=== PATIENT | male | born 1945 | race Caucasian/White ===

== ENCOUNTER 2017-06-16 18:23 | Inpatient (IN) ==
[2017-06-16] MEDS ORDERED: 0.9 % Sodium Chloride 1,000 ML IVC ONE ×2 (18:26→19:59)
--- NOTE | 2017-06-16 18:30 | Emergency Department Note ---
Disposition Clinical Impression: GI bleed, Severe anemia, History of gastric cancer Disposition: Admitted As Inpatient Condition: Fair General Adult HPI - General Chief complaint: ED Recheck/Abnormal Lab/Rx Stated complaint: anemic Time Seen by Provider: 06/16/17 18:25 Source: patient Limitations: no limitations - History of Present Illness Pain Scale: 0 - Related Data Home Medications Medication Instructions Recorded Confirmed Clopidogrel Bisulfate [Plavix] 75 mg PO DAILY 08/28/16 06/16/17 Insulin ASPART [Novolog Flexpen] 8 unit SQ TIDWM 08/28/16 06/16/17 Insulin Glargine,Hum.rec.anlog 20 unit SQ QPM 08/28/16 06/16/17 [Lantus Solostar] Lisinopril [Zestril] 20 mg PO DAILY 08/28/16 06/16/17 Simvastatin [Zocor] 40 mg PO HS 08/28/16 06/16/17 glipiZIDE [Glipizide] 10 mg PO BID 08/28/16 06/16/17 metFORMIN [Glucophage] 850 mg PO TIDWM 08/28/16 06/16/17 Albuterol Sulfate [Albuterol 2 puff IH Q4H PRN 06/16/17 06/16/17 Inhaler] Ranitidine HCl [Zantac] 150 mg PO BID 06/16/17 06/16/17 Tiotropium [place] [Spiriva 2 puff IH DAILY 06/16/17 06/16/17 Respimat] hydroCHLOROthiazide 12.5 mg PO DAILY 06/16/17 06/16/17 [Hydrochlorothiazide] Previous Rx's Medication Instructions Recorded Magic Mouthwash [Magic Mouthwash 10 ml PO QID PRN #240 ml 12/04/16 BLM] Ondansetron HCl [Zofran] 4 mg PO Q4HR #30 tablet 02/11/17 Prochlorperazine Maleate 10 mg PO Q6H PRN #30 tablet 02/11/17 [Compazine] Docusate Sodium [Colace] 100 mg PO BID #60 capsule 02/18/17 Citalopram Hydrobromide [Celexa] 20 mg PO DAILY #30 tab 04/02/17 Omeprazole [PriLOSEC] 20 mg PO BIDAC #30 cap 06/19/17 Allergies Allergy/AdvReac Type Severity Reaction Status Date / Time No Known Drug Allergies Allergy See Verified 05/28/17 15:56 Comments Past Medical History - Past Medical History Medical history: Reports: aortic aneurysm, cancer, COPD, CVA, diabetes, hyperlipidemia, hypertension, other Surgical history: Reports: other Psychiatric history: Reports: no psych history - Social History Smoking Status: Current every day smoker Smokeless Tobacco Status: No Alcohol use: Reports: none Drug use: Reports: none Physical Exam - General Limitations: no limitations General appearance: alert, appears intoxicated Course Vital Signs Temperature 97 F L 06/16/17 18:25 Pulse Rate 81 06/16/17 18:25 Respiratory Rate 18 06/16/17 18:25 Blood Pressure 130/67 06/16/17 18:25 O2 Sat by Pulse Oximetry 100 06/16/17 18:25 Temperature 97.8 F 06/17/17 06:24 Pulse Rate 71 06/17/17 11:30 Respiratory Rate 18 06/17/17 11:30 Blood Pressure 153/76 06/17/17 11:30 O2 Sat by Pulse Oximetry 97 06/17/17 11:30 Oxygen Delivery Oxygen Delivery Room Air Medical Decision Making - Lab Data Result diagrams: 06/17/17 10:44 Lab Results 06/16/17 06/16/17 06/17/17 Range/Units 19:11 20:10 01:12 POC Glucose 114 H (58-89) Stool Occult Blood Positive A (Negative) Blood Type O POSITIVE Antibody Screen NEGATIVE Crossmatch See Detail Critical Care Time Critical Care Time: Yes Total Critical Care Time: 30 Attestation: The high probability of a clinically significant, sudden or life threatening deterioration of the [] system(s) required my full and direct attention, intervention and personal management. The aggregate critical care time was [] minutes. This time is in addition to time spent performing reported procedures but includes the following: [] Data Review and interpretation [] Patient assessment and monitoring of vital signs [] Documentation [] Medication orders and management Attestation Statement - Attestation Attestation: I examined this patient and my medical decision-making was reviewed with the Resident Physician. I agree with the documented findings, disposition and treatment plan as described except to the extent set forth below. [id number] time provided Patient presents as a transfer from the [place] due to anemia. He appears in no acute distress. It was reported that he was previously confused. He has a history of recurrent transfusions. I [facility] hemoglobin [facility] 6.8
--- NOTE | 2017-06-16 18:32 | Emergency Department Note ---
Disposition Clinical Impression: Severe anemia, History of gastric cancer GI bleed Qualifiers: GI bleed type/associated pathology: melena Qualified Code(s): K92.1 - Melena Disposition: Admitted As Inpatient Condition: Fair Time of Disposition: 22:00 General Adult HPI - General Chief complaint: ED Recheck/Abnormal Lab/Rx Stated complaint: anemic Time Seen by Provider: 06/16/17 18:25 Source: patient Limitations: no limitations Nursing Notes Reviewed: Yes Vital Signs Reviewed: Yes - History of Present Illness HPI Narrative: Patient is a 72-year-old male presents from the [place] via EMS secondary to confusion and severe anemia with a hemoglobin of 6.8. Patient has a history of transfusions would last transfusion 6 months ago with a history of gastric adenocarcinoma. Patient has a rare blood type was not able to receive transfusion at the [place] today. Patient has no abnormal vital signs at this time Pain Scale: 0 - Related Data Home Medications Medication Instructions Recorded Confirmed Clopidogrel Bisulfate [Plavix] 75 mg PO DAILY 08/28/16 06/16/17 Insulin ASPART [Novolog Flexpen] 8 unit SQ TIDWM 08/28/16 06/16/17 Insulin Glargine,Hum.rec.anlog 20 unit SQ QPM 08/28/16 06/16/17 [Lantus Solostar] Lisinopril [Zestril] 20 mg PO DAILY 08/28/16 06/16/17 Simvastatin [Zocor] 40 mg PO HS 08/28/16 06/16/17 glipiZIDE [Glipizide] 10 mg PO BID 08/28/16 06/16/17 metFORMIN [Glucophage] 850 mg PO TIDWM 08/28/16 06/16/17 Albuterol Sulfate [Albuterol 2 puff IH Q4H PRN 06/16/17 06/16/17 Inhaler] Ranitidine HCl [Zantac] 150 mg PO BID 06/16/17 06/16/17 Tiotropium [place] [Spiriva 2 puff IH DAILY 06/16/17 06/16/17 Respimat] hydroCHLOROthiazide 12.5 mg PO DAILY 06/16/17 06/16/17 [Hydrochlorothiazide] Previous Rx's Medication Instructions Recorded Magic Mouthwash [Magic Mouthwash 10 ml PO QID PRN #240 ml 12/04/16 BLM] Ondansetron HCl [Zofran] 4 mg PO Q4HR #30 tablet 02/11/17 Prochlorperazine Maleate 10 mg PO Q6H PRN #30 tablet 02/11/17 [Compazine] Docusate Sodium [Colace] 100 mg PO BID #60 capsule 02/18/17 Citalopram Hydrobromide [Celexa] 20 mg PO DAILY #30 tab 04/02/17 Omeprazole [PriLOSEC] 20 mg PO BIDAC #30 cap 05/08/17 Allergies Allergy/AdvReac Type Severity Reaction Status Date / Time No Known Drug Allergies Allergy See Verified 05/28/17 15:56 Comments Review of Systems: As Per HPI Constitutional: Denies: fever Eyes: Denies: vision change ENT ED: Denies: congestion Cardiovascular: Denies: chest pain Respiratory: Denies: cough Gastrointestinal: Denies: abdominal pain Genitourinary: Denies: urgency Musculoskeletal: Denies: back pain Integumentary: Denies: rash Neurological: Denies: headache Endocrine: Denies: fatigue Past Medical History - Past Medical History Medical history: Reports: aortic aneurysm, cancer, COPD, CVA, diabetes, hyperlipidemia, hypertension, other Surgical history: Reports: other Psychiatric history: Reports: no psych history - Social History Smoking Status: Current every day smoker Smokeless Tobacco Status: No Alcohol use: Reports: none Drug use: Reports: none Physical Exam Vital Signs Temperature 97 F L 06/16/17 18:25 Pulse Rate 81 06/16/17 18:25 Respiratory Rate 18 06/16/17 18:25 Blood Pressure 130/67 06/16/17 18:25 O2 Sat by Pulse Oximetry 100 06/16/17 18:25 Temperature 97 F L 06/16/17 18:25 Pulse Rate 78 06/16/17 19:55 Respiratory Rate 18 06/16/17 19:55 Blood Pressure 129/71 06/16/17 19:55 O2 Sat by Pulse Oximetry 93 06/16/17 19:55 Oxygen Delivery Oxygen Delivery Room Air 72-year-old male who is alert and oriented 3 and in no acute distress. Patient has normal vital signs. Patient has melanotic stool on rectal exam. - General Limitations: no limitations General appearance: alert, appears intoxicated - Head Head exam: atraumatic, normocephalic, normal inspection - Eye Eye exam: Present: normal appearance, PERRL, EOMI - ENT ENT exam: normal exam, normal oropharynx, mucous membranes moist - Neck Neck exam: Present: normal inspection, full ROM, trachea midline - Chest Chest inspection: Present: normal inspection, symmetric chest wall rise - Respiratory Respiratory exam: Present: normal lung sounds bilaterally, wheezes - Cardiovascular Cardiovascular exam: Present: regular rate, normal rhythm, normal heart sounds - Abdominal Exam Abdominal exam: Present: soft, Non-Tender. Absent: tenderness, distention, guarding, rebound, rigidity - Rectal Exam Rectal exam: Present: normal rectal tone, black stool, prostate enlargement - Female Precision Grinder External present during exam: Yes - Extremities Exam Extremities exam: Present: normal inspection, full ROM, normal capillary refill. Absent: tenderness, pedal edema - Back Exam Back exam: Present: normal inspection, full ROM. Absent: tenderness, CVA tenderness (R), CVA tenderness (L), vertebral tenderness - Neurological Exam Neurological exam: Present: alert, oriented X3 - Skin Skin exam: Present: warm, dry, intact, normal color. Absent: rash, pallor Course Vital Signs Temperature 97 F L 06/16/17 18:25 Pulse Rate 81 06/16/17 18:25 Respiratory Rate 18 06/16/17 18:25 Blood Pressure 130/67 06/16/17 18:25 O2 Sat by Pulse Oximetry 100 06/16/17 18:25 Temperature 97.4 F L 06/16/17 23:16 Pulse Rate 72 06/16/17 23:16 Respiratory Rate 17 06/16/17 23:16 Blood Pressure 125/57 06/16/17 23:16 O2 Sat by Pulse Oximetry 95 06/16/17 23:16 Oxygen Delivery Oxygen Delivery Room Air Medical Decision Making - [facility] Narrative Medical decision making narrative: Severe anemia hemoglobin 6.8 symptomatic with confusion black stools on rectal exam history of abdominal adenocarcinoma. Current plan fluid resuscitation type and crossmatch for blood transfusion admission. Patient's history undergoing treatment for gastric adenocarcinoma with Dr. Arguelles. Patient is scheduled for transfusion 2 units, patient is receiving 2 L IV normal saline, patient is doing well and has normal vital signs. Fecal occult stool test was positive. Patient accepts this is a further admission. Patient accepted for admission by hospitalist Dr. Street. - Medical Records Medical records reviewed: Yes I reviewed the patient's medical records. Records were ordered from the [place] patient's lab workup was ready done which shows hemoglobin 6.8 - Lab Data Lab results reviewed: Yes I reviewed the patient's lab results. Lab Results 06/16/17 06/16/17 Range/Units 19:11 20:10 Stool Occult Blood Positive A (Negative) Blood Type O POSITIVE Antibody Screen NEGATIVE Crossmatch See Detail - Radiology Data Radiology results reviewed: Yes I reviewed the patient's radiology results.
[2017-06-16] MEDS ORDERED: Pantoprazole 40 MG VIAL IVP ONE (20:37)
[2017-06-17] MEDS ORDERED: 0.9 % Sodium Chloride 500 ML ONE (00:25)
[2017-06-17] MEDS ORDERED: Albuterol 2.5 MG/3 ML NEBULIZER IH PRN (04:10)
[2017-06-17] MEDS ORDERED: Naloxone 0.4 MG/ML INJ IVP PRN (04:11)
[2017-06-17] MEDS ORDERED: Ondansetron 4 MG/2 ML VIAL IVP PRN (04:11)
[2017-06-17] MEDS ORDERED: Acetaminophen 325 MG TABLET PO PRN (04:11)
[2017-06-17] MEDS ORDERED: Dextrose Gel 15 GM PO PRN ×2 (04:14)
[2017-06-17] MEDS ORDERED: *HR* Dextrose 50 % in Water (Syg) 50 ML SYRINGE IVP PRN (04:14)
[2017-06-17] MEDS ORDERED: D5% in Water 1,000 ML IVC PRN (04:14)
--- NOTE | 2017-06-17 04:19 | Internal Med History&Physical ---
Date of Encounter: 06/17/17 Time of Encounter: 04:17 Assessment and Plan (1) GI bleed Current visit: Yes Status: Acute Patient denies any melena or hematochezia however per history he has had melena. He has history of adenocarcinoma of the stomach and he says he has been receiving transfusion for last 10 years. His hemoglobin is 6.8. He has been given 2 units of blood. H&H ordered IV Protonix was started. Requesting old records to see how long ago he had EGD and colonoscopy as patient could not tell me. Qualifiers: GI bleed type/associated pathology: melena Qualified Code(s): K92.1 - Melena (2) History of gastric cancer Current visit: Yes Status: Acute History of gastric cancer. Patient not sure how it was treated. Need to see the record. (3) COPD (chronic obstructive pulmonary disease) Current visit: Yes Status: Acute Albuterol nebs when necessary Qualifiers: COPD type: emphysema Emphysema type: unspecified Qualified Code(s): J43.9 - Emphysema, unspecified (4) Diabetes 1.5, managed as type 2 Current visit: Yes Status: Acute Recheck yearly with sliding scale coverage Internal Medicine - H&P: HPI Chief complaint: Confusion and anemia Admitted From: Home Plans for Post Hospital Care: Home History of present illness: Mr. Abbott is a 72 year old male past medical history significant for adenocarcinoma of the stomach sent from [facility] for anemia and confusion. No further details available. Patient is awake and alert and answered my questions and does not appear confused. He says he has been having this problem for the last 10 years and every 6 months or so he needs transfusion. He did have EGD and colonoscopy in the past. As patient arrived pretty late in the evening he does not want to talk much at this time. He denies any abdominal pain nausea vomiting diarrhea dysuria urgency frequency hematuria hematochezia or hematemesis melena or any other symptoms otherwise. Past Med Surg Social Fam HX - Past Medical History Medical history: aortic aneurysm, cancer, COPD, CVA, diabetes, hyperlipidemia, hypertension, other Psychiatric history: no psych history - Past Surgical History Surgical History: other - Social History Smoking Status: Current every day smoker Smokeless Tobacco Status: No Alcohol use: none Drug use: none - Family History Mother Cause of : [place] or CVA Father Cause of : [place] or CVA Internal Medicine - H&P: Meds Clopidogrel Bisulfate [Plavix] 75 mg PO DAILY 08/28/16 [History] Insulin ASPART [Novolog Flexpen] 8 unit SQ TIDWM 08/28/16 [History] Insulin Glargine,Hum.rec.anlog [Lantus Solostar] 20 unit SQ QPM 08/28/16 [ History] Lisinopril [Zestril] 20 mg PO DAILY 08/28/16 [History] Simvastatin [Zocor] 40 mg PO HS 08/28/16 [History] glipiZIDE [Glipizide] 10 mg PO BID 08/28/16 [History] metFORMIN [Glucophage] 850 mg PO TIDWM 08/28/16 [History] Magic Mouthwash [Magic Mouthwash BLM] 10 ml PO QID PRN #240 ml 12/04/16 [Rx] Ondansetron HCl [Zofran] 4 mg PO Q4HR #30 tablet 02/11/17 [Rx] Prochlorperazine Maleate [Compazine] 10 mg PO Q6H PRN #30 tablet 02/11/17 [Rx] Docusate Sodium [Colace] 100 mg PO BID #60 capsule 02/18/17 [Rx] Citalopram Hydrobromide [Celexa] 20 mg PO DAILY #30 tab 04/02/17 [Rx] Omeprazole [PriLOSEC] 20 mg PO BIDAC #30 cap 05/08/17 [Rx] Albuterol Sulfate [Albuterol Inhaler] 2 puff IH Q4H PRN 06/16/17 [History] Ranitidine HCl [Zantac] 150 mg PO BID 06/16/17 [History] Tiotropium [place] [Spiriva Respimat] 2 puff IH DAILY 06/16/17 [History] hydroCHLOROthiazide [Hydrochlorothiazide] 12.5 mg PO DAILY 06/16/17 [History] 3 Allergy/AdvReac Type Severity Reaction Status Date / Time No Known Drug Allergies Allergy See Verified 05/28/17 15:56 Comments All Systems PM: A 10-system review of systems was performed and is negative for pertinent findings except as documented above in the HPI. - Constitutional Constitutional: no chills, no fever(s), no night sweats - EENT Eyes: no change in vision, no discharge, no pain, no photophobia Ears: no ear discharge, no ear pain, no tinnitus Nose, mouth and throat: no dysphagia, no nasal discharge, no neck pain, no sore throat - Cardiovascular Cardiovascular ROS IM: no chest pain, no diaphoresis, no dyspnea, no lightheadedness, no palpitations, no syncope - Respiratory Respiratory: no cough, no dyspnea, no wheezing, no excessive phlegm production - Gastrointestinal Gastrointestinal: no abdominal pain, no diarrhea, no hematemesis, no hematochezia, no melena, no nausea, no vomiting - Musculoskeletal Musculoskeletal ROS IM: no numbness, no tingling - Integumentary Integumentary IM: no rash, no unusual bruising - Neurological Neurological ROS: no confusion, no convulsions, no focal weakness, no numbness, no tingling, no tremor(s) - Hematologic/Lymphatic Hematologic/Lymphatic: no easy bruising - Constitutional Vitals: Temp Pulse Resp BP Pulse Ox 97.5 F L 68 15 130/63 97 06/17/17 04:00 06/17/17 04:00 06/17/17 04:00 06/17/17 04:00 06/17/17 04:00 - Head Head exam: Present: atraumatic, normocephalic - Eye Eye exam: Present: PERRL, conjuntiva pink, sclera anicteric Pupils: Present: PERRL - Neck Neck exam general surgery: Present: supple, trachea midline. Absent: lymphadenopathy - Respiratory Respiratory exam: Present: CTAB. Absent: accessory muscle use, rales, rhonchi, wheezes - Cardiovascular Cardiovascular exam: Present: RRR, +S1, +S2. Absent: diastolic murmur, gallop, rubs, systolic murmur - GI/Abdominal GI/Abdominal exam: Present: normal bowel sounds, soft, no peritoneal signs. Absent: distended, tenderness - Extremities Exam Extremities exam: Present: warm, radial pulses palpable and symmetrical. Absent : calf tenderness, cyanotic, pedal edema - Neurological Exam Neurological exam: Present: CN II-XII intact, oriented X3, no focal deficits. Absent: pronater drift, facial droop, speech deficit - Skin Skin exam: Present: dry, intact
[2017-06-17] MEDS: Insulin LISPRO 300 UNITS/3 ML VIAL SQ SCH ×2 (06:54→12:47)
[2017-06-17] MEDS ORDERED: Pantoprazole 40 MG VIAL IVP SCH (07:30)
[2017-06-17 08:47] LABS: Hematocrit 23.9 % (37.5-50.1); Hemoglobin 7.1 g/dL (12.9-16.9)
[2017-06-17] MEDS ORDERED: Ipratropium/Albuterol Neb 3 ML IH SCH (10:00)
[2017-06-17 10:53] LABS: Hematocrit 27.1 % (37.5-50.1); Hemoglobin 8.1 g/dL (12.9-16.9)
[2017-06-17 11:31] VITALS: BP 153/76
--- NOTE | 2017-06-17 14:14 | Discharge Summary ---
Date of Encounter: 06/17/17 Time of Encounter: 09:10 - Discharge Diagnosis (1) GI bleed Priority: Primary Status: Acute Comments: Patient is a 72-year-old male with past medical history significant for anemia, adenocarcinoma of the stomach. He was sent from the [place] for anemia and confusion , however when he arrived admitting physician did not feel that he was confused. He reports having melena and anemia requiring transfusion every 6 months or so for the last 10 years. Patient had EGD and colonoscopy in the past at the [facility], and we were trying to obtain his old records. On exam this morning, patient appears to be alert, oriented. He also appears very agitated and does not want to speak or answer questions. When questioned about melena or dark tarry stools one time he says that he had had them, the next time he is asked he says he does not know. His abdomen is soft and nontender. There are bowel sounds present. He denies bowel movement today. He is pink, skin is warm and dry. He does not appear to be in respiratory distress. He has been ambulating continuously in the hallways of the department and does not appear to be having difficulty. Patient had serial hemoglobins this morning. The first one at 8:20 AM was 7.1, at 10:44 AM it was 8.1. Patient was unwilling to stay for continued evaluation or to be evaluated by GI or surgery for a scope. He was unwilling to stay for further blood transfusions. Patient reports that everything was taking way too long that he wanted to go home. seed cleaning manager and I spoke with the patient and attempted to resolve his concerns , he was unwilling to continue treatment and requested to be sent home. Patient signed out AMA. Qualifiers: GI bleed type/associated pathology: melena Qualified Code(s): K92.1 - Melena (2) Severe anemia Priority: Secondary Status: Acute Comments: Patient with chronic anemia. He presented with melena. When patient last, last hemoglobin was 8.1 at 10:44 AM. Patient did not have any obvious signs of bleeding, he was able to ambulate around the department well without any signs of distress, fatigue, or shortness of breath. See above. (3) COPD (chronic obstructive pulmonary disease) Priority: Secondary Status: Acute Comments: Patient did not appear to be in acute exacerbation. His lungs were diminished with faint wheezing in the bases. He denied any cough. He was not requiring supplemental oxygen, nor does he wear oxygen at home per his account. He was able to ambulate without difficulty. Patient signed out AGAINST MEDICAL ADVICE. Qualifiers: COPD type: emphysema Emphysema type: unspecified Qualified Code(s): J43.9 - Emphysema, unspecified (4) Diabetes 1.5, managed as type 2 Priority: Secondary Status: Chronic Comments: Chronic. Continue home regimen. (5) HTN (hypertension) Priority: Secondary Status: Chronic Comments: Blood pressure was well controlled while admitted. Continue home medications. Qualifiers: Hypertension type: unspecified Qualified Code(s): I10 - Essential (primary ) hypertension (6) DVT prophylaxis Priority: Secondary Status: Acute Comments: Patient was ambulatory. No pharmacologic intervention recommended due to anemia and melena. - Discharge Medications Home Medications: Clopidogrel Bisulfate [Plavix] 75 mg PO DAILY 08/28/16 [History] Insulin ASPART [Novolog Flexpen] 8 unit SQ TIDWM 08/28/16 [History] Insulin Glargine,Hum.rec.anlog [Lantus Solostar] 20 unit SQ QPM 08/28/16 [ History] Lisinopril [Zestril] 20 mg PO DAILY 08/28/16 [History] Simvastatin [Zocor] 40 mg PO HS 08/28/16 [History] glipiZIDE [Glipizide] 10 mg PO BID 08/28/16 [History] metFORMIN [Glucophage] 850 mg PO TIDWM 08/28/16 [History] Magic Mouthwash [Magic Mouthwash BLM] 10 ml PO QID PRN #240 ml 12/04/16 [Rx] Ondansetron HCl [Zofran] 4 mg PO Q4HR #30 tablet 02/11/17 [Rx] Prochlorperazine Maleate [Compazine] 10 mg PO Q6H PRN #30 tablet 02/11/17 [Rx] Docusate Sodium [Colace] 100 mg PO BID #60 capsule 02/18/17 [Rx] Citalopram Hydrobromide [Celexa] 20 mg PO DAILY #30 tab 04/02/17 [Rx] Omeprazole [PriLOSEC] 20 mg PO BIDAC #30 cap 05/08/17 [Rx] Albuterol Sulfate [Albuterol Inhaler] 2 puff IH Q4H PRN 06/16/17 [History] Ranitidine HCl [Zantac] 150 mg PO BID 06/16/17 [History] Tiotropium [place] [Spiriva Respimat] 2 puff IH DAILY 06/16/17 [History] hydroCHLOROthiazide [Hydrochlorothiazide] 12.5 mg PO DAILY 06/16/17 [History] Allergies/Adverse Reactions: 3 Allergy/AdvReac Type Severity Reaction Status Date / Time No Known Drug Allergies Allergy See Verified 05/28/17 15:56 Comments Date of admission: 06/17/17 04:11 [facility] care [facility] Discharging clinician: Cristy Dempsey Anticipated date of discharge: 06/17/17 - Patient Status Disposition: Left Against Medical Advice Condition: Fair - Discharge Instructions Instructions: Gastrointestinal Bleeding (DC), Anemia (GEN) Interval History: Please see assessment and plan for hospital course. Hospital course: Mr. Abbott is a 72 year old male - Time Spent with Patient Total time spent providing and/or coordinating discharge services: - Constitutional Vitals: Temp Pulse Resp BP Pulse Ox 97.8 F 71 18 153/76 97 06/17/17 06:24 06/17/17 11:30 06/17/17 11:30 06/17/17 11:30 06/17/17 11:30 General appearance: Present: cooperative, no acute distress, answers questions appropriately. Absent: pleasant - Head Head exam: Present: atraumatic, normal inspection, normocephalic - Eye Eye exam: Present: normal appearance, conjuntiva pink, sclera anicteric - Neck Neck exam general surgery: Present: supple, trachea midline. Absent: lymphadenopathy - Respiratory Respiratory exam: Present: CTAB. Absent: accessory muscle use, chest wall tenderness, decreased breath sounds, rales, respiratory distress, rhonchi, wheezes - Cardiovascular Cardiovascular exam: Present: RRR, +S1, +S2. Absent: diastolic murmur, gallop, rubs, systolic murmur - GI/Abdominal GI/Abdominal exam: Present: normal bowel sounds, soft, no peritoneal signs. Absent: distended, tenderness - Extremities Exam Extremities exam: Present: normal capillary refill, normal inspection, warm, radial pulses palpable and symmetrical. Absent: calf tenderness, cyanotic, pedal edema - Neurological Exam Neurological exam: Present: alert, oriented X3, no focal deficits. Absent: facial droop, speech deficit - Skin Skin exam: Present: dry, intact, normal color, warm. Absent: rash
== END 2017-06-17 13:02 | disposition left against medical advice (07) | DRG 812 ==
LOC: EMEROO 18:23 → 3BNU 18:23
PROVIDERS: ADMIT Family Medicine; ATTEND Registered Nurse

== ENCOUNTER 2017-12-19 11:08 | Observation (INO) ==
--- NOTE | 2017-12-19 12:12 | Emergency Department Note ---
Disposition Clinical Impression: Severe anemia GI bleed Qualifiers: GI bleed type/associated pathology: unspecified gastrointestinal hemorrhage type Qualified Code(s): K92.2 - Gastrointestinal hemorrhage, unspecified Disposition: Admitted As Inpatient Condition: Fair General Adult HPI - General Chief complaint: ED General Medical Stated complaint: Needs blood Time Seen by Provider: 12/19/17 11:17 Source: patient Mode of arrival: ambulatory Limitations: no limitations Nursing Notes Reviewed: Yes Vital Signs Reviewed: Yes - History of Present Illness HPI Narrative: Patient is a 72-year-old male with a past medical history of gastric adenocarcinoma presenting at the request of his oncologist for blood transfusion. The patient states he has a history of receiving transfusions over the past 10 years due to blood loss or suspect is from his gastric adenocarcinoma. The patient currently undergoes radiation therapy for his cancer. States that he was seen at his oncologist, Dr. Smith and yesterday and was found to have a hemoglobin that was low and it dropped over the week. The patient states that he did have one large black and tarry bowel movement yesterday which is normal for him. His only symptoms are that he feels weak he denies any fevers, chills, congestion, cough, chest pain, shortness of breath, abdominal pain, vomiting, nausea or any other associated symptoms at this time. Pain Scale: 0 - Related Data Home Medications Medication Instructions Recorded Confirmed Albuterol Sulfate [Albuterol 2 puff IH Q4HR PRN 12/19/17 12/19/17 Inhaler] Ascorbic Acid [Vitamin C] 250 mg PO TID 12/19/17 12/19/17 Cholecalciferol (D-3) [Vitamin D] 2,000 unit PO DAILY 12/19/17 12/19/17 Citalopram [CeleXA] 20 mg PO DAILY 12/19/17 12/19/17 Colestipol HCl [Colestid] 2 gm PO DAILY 12/19/17 12/19/17 Folic Acid 1 mg PO DAILY 12/19/17 12/19/17 Lisinopril [Zestril] 20 mg PO DAILY 12/19/17 12/19/17 Omeprazole [PriLOSEC] 20 mg PO BIDAC 12/19/17 12/19/17 Simvastatin [Zocor] 40 mg PO HS 12/19/17 12/19/17 Tiotropium [place] [Spiriva 2 puff IH DAILY 12/19/17 12/19/17 Respimat] Zolpidem [Ambien] 5 mg PO HS 12/19/17 12/19/17 glipiZIDE [Glipizide] 10 mg PO BID 12/19/17 12/19/17 metFORMIN [Glucophage] 850 mg PO TID 12/19/17 12/19/17 Previous Rx's Medication Instructions Recorded Magic Mouthwash [Magic Mouthwash 10 ml PO QID PRN #240 ml 12/04/16 BLM] Ondansetron HCl [Zofran] 4 mg PO Q4HR #30 tablet 02/11/17 Hydrocortisone 2.5% CREAM [Cortaid] 1 appl TP BID #1 tube 07/08/17 DiphenhydraMINE [Benadryl] 1 tab PO BID PRN #30 capsule 08/12/17 Diphenoxylate/Atropine [Lomotil 1 each PO QID PRN 7 Days #30 tablet 09/14/17 2.5 mg/0.025 mg] Desitin (Zinc Oxide) [Desitin 1 appl TP TID #1 tube 09/15/17 Diaper Rash 40 % Paste] Allergies Allergy/AdvReac Type Severity Reaction Status Date / Time No Known Drug Allergies Allergy See Verified 12/19/17 14:23 Comments All systems ED: reviewed and negative except as stated. Review of Systems: As Per HPI Constitutional: Reports: weakness. Denies: fever, chills ENT ED: Denies: congestion Cardiovascular: Denies: chest pain, palpitations Respiratory: Denies: cough, dyspnea, wheezes Gastrointestinal: Denies: abdominal pain, nausea, vomiting, diarrhea Genitourinary: Denies: urgency, dysuria Musculoskeletal: Denies: back pain, neck pain Integumentary: Denies: rash, abrasion Neurological: Denies: headache, weakness Past Medical History - Past Medical History Attestation: Yes The following information was validated with the patient. Medical history: Reports: aortic aneurysm, cancer, COPD, CVA, diabetes, hyperlipidemia, hypertension, other Surgical history: Reports: other Psychiatric history: Reports: no psych history - Social History Smoking Status: Current every day smoker Smokeless Tobacco Status: No Alcohol use: Reports: none Drug use: Reports: none Physical Exam CONSTITUTIONAL: Well-appearing; well-nourished; A&O X 3, in no apparent distress HEAD: Normocephalic; atraumatic EYES: PERRL, no scleral icterus NOSE: The nose is normal in appearance without rhinorrhea NECK: No JVD or distended neck veins RESP: Normal chest excursion with respiration; breath sounds clear and equal bilaterally; no wheezes, rhonchi, or rales CARD: Regular rhythm, without murmurs, rub or gallop ABD: Non-distended; non-tender, soft, without rigidity, rebound or guarding,no pulsatile mass CHEST: No pain with palpation SKIN: Normal for age and race; warm and dry without diaphoresis RECTAL: Rectal exam shows normal tone. No gross blood present. Black stool seen on digital exploration. No tenderness. EXT: patient does have a skin tear in his left distal wrist on the ulnar aspect from a fall. He denies any bony tenderness. No step-off or deformity full range of motion of the wrist, digits, and elbow. No sensation loss. 5 out of 5 strength. EXTREMITIES: Pulses are 2 plus and equal times 4 extremities, no peripheral edema or calf muscle pain - General Limitations: no limitations General appearance: alert, in no apparent distress Course Course Narrative: I discussed the patient's case with the oncologist on-call and they state that this patient is mainly coming in for blood transfusions because her office is currently too backed up for them to have patient come to them for transfusions at this time. He states that the patient's blood loss from his cancer is a chronic ongoing issue and the patient has had an extensive workup with CT scans and EGDs and seen Gen. surgery is currently undergoing treatment for his chronic anemia. States that it is routine for this patient to receive blood transfusions. Does recommend admission for blood transfusions. No other concerns at this time. Vital Signs Temperature 97.9 F 12/19/17 11:08 Pulse Rate 88 12/19/17 11:08 Respiratory Rate 16 12/19/17 11:08 Blood Pressure 122/76 12/19/17 11:08 O2 Sat by Pulse Oximetry 100 12/19/17 11:08 Temperature 98.8 F 12/19/17 18:44 Pulse Rate 70 12/19/17 18:44 Respiratory Rate 18 12/19/17 18:44 Blood Pressure 110/69 12/19/17 18:44 O2 Sat by Pulse Oximetry 95 12/19/17 16:18 Oxygen Delivery Oxygen Delivery Room Air Medical Decision Making - Medical Records Medical records reviewed: Yes I reviewed the patient's medical records. - Lab Data Result diagrams: 12/19/17 12:04 12/19/17 12:04 Lab Results 12/19/17 12/19/17 12/19/17 Range/Units 12:04 12:04 12:04 WBC 5.4 (4.3-11.1) K/mcL RBC 2.22 L (4.19-5.50) M/mcL Hgb 5.5 L* (12.9-16.9) g/dL Hct 18.9 L (37.5-50.1) % MCV 85.1 (83.0-100.0) fL MCH 24.8 L (28.0-33.3) pg MCHC 29.1 L (31.6-35.5) g/dL RDW 19.6 H (11.5-14.5) % Plt Count 268 (140-400) K/mcL MPV 10.4 (9.4-12.4) fL Immature Gran % 0.6 (0-4) % Seg Neutrophils % 82.0 % Lymphocytes % 9.1 % Monocytes % 7.0 % Eosinophils % 1.1 % Basophils % 0.2 % Neutrophils # 4.4 (1.6-8.9) K/mcL Lymphocytes # 0.5 L (0.6-4.6) K/mcL Monocytes # 0.4 (0.0-1.3) K/mcL Eosinophils # 0.1 (0.0-0.6) K/mcL Basophils # 0.0 (0.0-0.2) K/mcL Sodium 135 L (136-145) mEq/L Potassium 3.8 (3.5-5.1) mEq/L Chloride 103 (98-107) mEq/L Carbon Dioxide 24 (23-29) mEq/L BUN 21 (8-23) mg/dL Creatinine 1.02 (0.70-1.30) mg/dL Est GFR ( Amer) > 60 (> 60) Est GFR (Non-Af Amer) > 60 (> 60) BUN/Creatinine Ratio 21 (6-26) Glucose 171 H (70-105) mg/dL Calculated Osmolality 287 (280-300) Calcium 9.4 (8.6-10.3) mg/dL Troponin I < 0.03 (< 0.04) ng/mL Stool Occult Blood (Negative) Blood Type O POSITIVE Antibody Screen NEGATIVE Crossmatch See Detail 12/19/17 Range/Units 12:04 WBC (4.3-11.1) K/mcL RBC (4.19-5.50) M/mcL Hgb (12.9-16.9) g/dL Hct (37.5-50.1) % MCV (83.0-100.0) fL MCH (28.0-33.3) pg MCHC (31.6-35.5) g/dL RDW (11.5-14.5) % Plt Count (140-400) K/mcL MPV (9.4-12.4) fL Immature Gran % (0-4) % Seg Neutrophils % % Lymphocytes % % Monocytes % % Eosinophils % % Basophils % % Neutrophils # (1.6-8.9) K/mcL Lymphocytes # (0.6-4.6) K/mcL Monocytes # (0.0-1.3) K/mcL Eosinophils # (0.0-0.6) K/mcL Basophils # (0.0-0.2) K/mcL Sodium (136-145) mEq/L Potassium (3.5-5.1) mEq/L Chloride (98-107) mEq/L Carbon Dioxide (23-29) mEq/L BUN (8-23) mg/dL Creatinine (0.70-1.30) mg/dL Est GFR ( Amer) (> 60) Est GFR (Non-Af Amer) (> 60) BUN/Creatinine Ratio (6-26) Glucose (70-105) mg/dL Calculated Osmolality (280-300) Calcium (8.6-10.3) mg/dL Troponin I (< 0.04) ng/mL Stool Occult Blood Positive A (Negative) Blood Type Antibody Screen Crossmatch - EKG Data EKG #1 EKG attestation: Yes I reviewed and interpreted this EKG. EKG results narrative: EKG done at 11:50 shows sinus rhythm at a rate of 97 bpm. Normal axis. MS is 164, QRS is 105, QT is 360 and QTc is 4 and 16 and these are within normal limits. No signs of ST elevation, ST depression or new Q waves present. No signs of ischemia. The patient does have some ST changes that appear to be chronic. No new changes when compared to EKG done on December 192017
[2017-12-19 12:28] LABS: Basophils % 0.2 %; Mean Platelet Volume 10.4 fL (9.4-12.4)
[2017-12-19 12:29] LABS: Eosinophils # 0.1 K/mcL (0.0-0.6); Eosinophils % 1.1 %; Hematocrit 18.9 % (37.5-50.1); Immature Granulocytes % 0.6 % (0-4); Lymphocytes # 0.5 K/mcL (0.6-4.6); Lymphocytes % 9.1 %; Mean Corpuscular HGB Conc 29.1 g/dL (31.6-35.5); Mean Corpuscular Hemoglobin 24.8 pg (28.0-33.3); Mean Corpuscular Volume 85.1 fL (83.0-100.0); Monocytes # 0.4 K/mcL (0.0-1.3); Neutrophils # 4.4 K/mcL (1.6-8.9); Platelet Count 268 K/mcL (140-400); Red Blood Count 2.22 M/mcL (4.19-5.50); Red Cell Distribution Width 19.6 % (11.5-14.5)
[2017-12-19 12:35] LABS: Hemoglobin 5.5 g/dL (12.9-16.9)
[2017-12-19 12:53] LABS: BUN/Creatinine Ratio 21 (6-26); Blood Urea Nitrogen 21 mg/dL (8-23); Calcium 9.4 mg/dL (8.6-10.3); Carbon Dioxide 24 mEq/L (23-29); Chloride 103 mEq/L (98-107); Glucose 171 mg/dL (70-105); Osmolality,Calculated 287 (280-300); Potassium 3.8 mEq/L (3.5-5.1); Sodium 135 mEq/L (136-145); Troponin I < 0.03 ng/mL (< 0.04); eGFR For African Americans > 60 (> 60); eGFR For Non-African Americans > 60 (> 60)
[2017-12-19] MEDS ORDERED: 0.9 % Sodium Chloride 500 ML ONE (13:33)
--- NOTE | 2017-12-19 13:38 | Emergency Department Note ---
Disposition Clinical Impression: Severe anemia GI bleed Qualifiers: GI bleed type/associated pathology: unspecified gastrointestinal hemorrhage type Qualified Code(s): K92.2 - Gastrointestinal hemorrhage, unspecified Disposition: Admitted As Inpatient Condition: Fair General Adult HPI - General Chief complaint: ED General Medical Stated complaint: Needs blood Time Seen by Provider: 12/19/17 11:17 Source: patient Mode of arrival: ambulatory Limitations: no limitations Nursing Notes Reviewed: Yes Vital Signs Reviewed: Yes - History of Present Illness Pain Scale: 0 - Related Data Home Medications Medication Instructions Recorded Confirmed Albuterol Sulfate [Albuterol 2 puff IH Q4HR PRN 12/19/17 12/19/17 Inhaler] Ascorbic Acid [Vitamin C] 250 mg PO TID 12/19/17 12/19/17 Cholecalciferol (D-3) [Vitamin D] 2,000 unit PO DAILY 12/19/17 12/19/17 Citalopram [CeleXA] 20 mg PO DAILY 12/19/17 12/19/17 Colestipol HCl [Colestid] 2 gm PO DAILY 12/19/17 12/19/17 Folic Acid 1 mg PO DAILY 12/19/17 12/19/17 Lisinopril [Zestril] 20 mg PO DAILY 12/19/17 12/19/17 Omeprazole [PriLOSEC] 20 mg PO BIDAC 12/19/17 12/19/17 Simvastatin [Zocor] 40 mg PO HS 12/19/17 12/19/17 Tiotropium [place] [Spiriva 2 puff IH DAILY 12/19/17 12/19/17 Respimat] Zolpidem [Ambien] 5 mg PO HS 12/19/17 12/19/17 glipiZIDE [Glipizide] 10 mg PO BID 12/19/17 12/19/17 metFORMIN [Glucophage] 850 mg PO TID 12/19/17 12/19/17 Previous Rx's Medication Instructions Recorded Magic Mouthwash [Magic Mouthwash 10 ml PO QID PRN #240 ml 12/04/16 BLM] Ondansetron HCl [Zofran] 4 mg PO Q4HR #30 tablet 02/11/17 Hydrocortisone 2.5% CREAM [Cortaid] 1 appl TP BID #1 tube 12/27/17 DiphenhydraMINE [Benadryl] 1 tab PO BID PRN #30 capsule 08/12/17 Diphenoxylate/Atropine [Lomotil 1 each PO QID PRN 7 Days #30 tablet 09/14/17 2.5 mg/0.025 mg] Desitin (Zinc Oxide) [Desitin] 1 appl TP TID #1 tube 09/15/17 Allergies Allergy/AdvReac Type Severity Reaction Status Date / Time No Known Drug Allergies Allergy See Verified 12/19/17 14:23 Comments Constitutional: Reports: weakness. Denies: fever, chills ENT ED: Denies: congestion Cardiovascular: Denies: chest pain, palpitations Respiratory: Denies: cough, dyspnea, wheezes Gastrointestinal: Denies: abdominal pain, nausea, vomiting, diarrhea Genitourinary: Denies: urgency, dysuria Musculoskeletal: Denies: back pain, neck pain Integumentary: Denies: rash, abrasion Neurological: Denies: headache, weakness Past Medical History - Past Medical History Medical history: Reports: aortic aneurysm, cancer, COPD, CVA, diabetes, hyperlipidemia, hypertension, other Surgical history: Reports: other Psychiatric history: Reports: no psych history - Social History Smoking Status: Current every day smoker Smokeless Tobacco Status: No Alcohol use: Reports: none Drug use: Reports: none Physical Exam - General Limitations: no limitations General appearance: alert, in no apparent distress Course Vital Signs Temperature 97.9 F 12/19/17 11:08 Pulse Rate 88 12/19/17 11:08 Respiratory Rate 16 12/19/17 11:08 Blood Pressure 122/76 12/19/17 11:08 O2 Sat by Pulse Oximetry 100 12/19/17 11:08 Temperature 97.8 F 12/20/17 07:02 Pulse Rate 58 12/20/17 07:02 Respiratory Rate 17 12/20/17 07:02 Blood Pressure 144/75 12/20/17 07:02 O2 Sat by Pulse Oximetry 98 12/20/17 07:02 Oxygen Delivery Oxygen Delivery Room Air Medical Decision Making - Lab Data Result diagrams: 12/20/17 04:00 12/19/17 12:04 Lab Results 12/19/17 12/19/17 12/19/17 Range/Units 12:04 12:04 12:04 WBC 5.4 (4.3-11.1) K/mcL RBC 2.22 L (4.19-5.50) M/mcL Hgb 5.5 L* (12.9-16.9) g/dL Hct 18.9 L (37.5-50.1) % MCV 85.1 (83.0-100.0) fL MCH 24.8 L (28.0-33.3) pg MCHC 29.1 L (31.6-35.5) g/dL RDW 19.6 H (11.5-14.5) % Plt Count 268 (140-400) K/mcL MPV 10.4 (9.4-12.4) fL Immature Gran % 0.6 (0-4) % Seg Neutrophils % 82.0 % Lymphocytes % 9.1 % Monocytes % 7.0 % Eosinophils % 1.1 % Basophils % 0.2 % Neutrophils # 4.4 (1.6-8.9) K/mcL Lymphocytes # 0.5 L (0.6-4.6) K/mcL Monocytes # 0.4 (0.0-1.3) K/mcL Eosinophils # 0.1 (0.0-0.6) K/mcL Basophils # 0.0 (0.0-0.2) K/mcL Sodium 135 L (136-145) mEq/L Potassium 3.8 (3.5-5.1) mEq/L Chloride 103 (98-107) mEq/L Carbon Dioxide 24 (23-29) mEq/L BUN 21 (8-23) mg/dL Creatinine 1.02 (0.70-1.30) mg/dL Est GFR ( Amer) > 60 (> 60) Est GFR (Non-Af Amer) > 60 (> 60) BUN/Creatinine Ratio 21 (6-26) Glucose 171 H (70-105) mg/dL Calculated Osmolality 287 (280-300) Calcium 9.4 (8.6-10.3) mg/dL Troponin I < 0.03 (< 0.04) ng/mL Stool Occult Blood (Negative) Blood Type O POSITIVE Antibody Screen NEGATIVE Crossmatch See Detail 12/19/17 Range/Units 12:04 WBC (4.3-11.1) K/mcL RBC (4.19-5.50) M/mcL Hgb (12.9-16.9) g/dL Hct (37.5-50.1) % MCV (83.0-100.0) fL MCH (28.0-33.3) pg MCHC (31.6-35.5) g/dL RDW (11.5-14.5) % Plt Count (140-400) K/mcL MPV (9.4-12.4) fL Immature Gran % (0-4) % Seg Neutrophils % % Lymphocytes % % Monocytes % % Eosinophils % % Basophils % % Neutrophils # (1.6-8.9) K/mcL Lymphocytes # (0.6-4.6) K/mcL Monocytes # (0.0-1.3) K/mcL Eosinophils # (0.0-0.6) K/mcL Basophils # (0.0-0.2) K/mcL Sodium (136-145) mEq/L Potassium (3.5-5.1) mEq/L Chloride (98-107) mEq/L Carbon Dioxide (23-29) mEq/L BUN (8-23) mg/dL Creatinine (0.70-1.30) mg/dL Est GFR ( Amer) (> 60) Est GFR (Non-Af Amer) (> 60) BUN/Creatinine Ratio (6-26) Glucose (70-105) mg/dL Calculated Osmolality (280-300) Calcium (8.6-10.3) mg/dL Troponin I (< 0.04) ng/mL Stool Occult Blood Positive A (Negative) Blood Type Antibody Screen Crossmatch Attestation Statement - Attestation Attestation: I, Doyle Urias, examined this patient and my medical decision-making was reviewed with the WHEELCHAIR RENTAL CLERK/PA/Advanced Practice Nurse/Resident Physician. I agree with the documented findings, disposition and treatment plan as described except to the extent set forth below. 72-year-old male presents emergency Department with concerns of weakness, fatigue. Patient hit has a history of chronic GI bleeding. He is required multiple blood transfusions in the past. Patient states his weakness and fatigue today is very similar to those previous situations. Patient hemoglobin is 5.5 today. He has dark stool that is guaiac positive. Patient denies syncopal event. Denies chest pain or shortness of breath at rest in the emergency department. Patient ordered 3 units of blood in the emergency department. He be admitted for further care and evaluation. The high probability of a clinically significant, sudden or life threatening deterioration of the cardiovascular system(s) required my full and direct attention, intervention and personal management. The aggregate critical care time was 35 minutes. This time is in addition to time spent performing reported procedures but includes the following: x Data Review and interpretation x Patient assessment and monitoring of vital signs x Documentation x Medication orders and management
--- NOTE | 2017-12-19 15:46 | Internal Med History&Physical ---
Date of Encounter: 12/19/17 Time of Encounter: 15:45 Internal Medicine - H&P: HPI Admitted From: Emergency Dept Plans for Post Hospital Care: Home History of present illness: Mr. 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 States that he was seen at his oncologist, Dr. Smith and yesterday. He was found to have a hemoglobin that was low and it dropped over the week. Pt presents with hgb 5.5. He has had recurrent blood transfusions in the past. Pt states he has been getting blood transfusions for about 10 years now. He is a former vet who fought in the [place] war. The patient currently undergoes radiation therapy for his cancer. The patient states that he did have one large black and tarry bowel movement yesterday which is normal for him. According to ED cancer center requesting pt get some units of blood then discharged. CODE STATUS: FULL need verified by family In ED WBC 5.4, hgb 5.5, hct 18.9, plt 268. Na 135, K 3.8, BUN 21, 1.02, glucose 171. Stool occult Positive. Chest x ray IMPRESSION: No acute cardiopulmonary process. Past Med Surg Social Fam HX - Past Medical History Medical history: aortic aneurysm, cancer, COPD, CVA, diabetes, hyperlipidemia, hypertension, other Additional medical history: SMOKER Psychiatric history: no psych history - Past Surgical History Surgical History: other Additional surgical history: EGD X2. COLONOSCOPY. PORT INSERTION - Social History Smoking Status: Current every day smoker Smokeless Tobacco Status: No Alcohol use: none Drug use: none Internal Medicine - H&P: Meds Magic Mouthwash [Magic Mouthwash BLM] 10 ml PO QID PRN #240 ml 12/04/16 [Rx] Ondansetron HCl [Zofran] 4 mg PO Q4HR #30 tablet 02/11/17 [Rx] Hydrocortisone 2.5% CREAM [Cortaid] 1 appl TP BID #1 tube 07/08/17 [Rx] DiphenhydraMINE [Benadryl] 1 tab PO BID PRN #30 capsule 08/12/17 [Rx] Diphenoxylate/Atropine [Lomotil 2.5 mg/0.025 mg] 1 each PO QID PRN 7 Days #30 tablet 09/14/17 [Rx] Desitin (Zinc Oxide) [Desitin Diaper Rash 40 % Paste] 1 appl TP TID #1 tube 12/28 [Rx] Albuterol Sulfate [Albuterol Inhaler] 2 puff IH Q4HR PRN 12/19/17 [History] Ascorbic Acid [Vitamin C] 250 mg PO TID 12/19/17 [History] Cholecalciferol (D-3) [Vitamin D] 2,000 unit PO DAILY 12/19/17 [History] Citalopram [CeleXA] 20 mg PO DAILY 12/19/17 [History] Colestipol HCl [Colestid] 2 gm PO DAILY 12/19/17 [History] Folic Acid 1 mg PO DAILY 12/19/17 [History] Lisinopril [Zestril] 20 mg PO DAILY 12/19/17 [History] Omeprazole [PriLOSEC] 20 mg PO BIDAC 12/19/17 [History] Simvastatin [Zocor] 40 mg PO HS 12/19/17 [History] Tiotropium [place] [Spiriva Respimat] 2 puff IH DAILY 12/19/17 [History] Zolpidem [Ambien] 5 mg PO HS 12/19/17 [History] glipiZIDE [Glipizide] 10 mg PO BID 12/19/17 [History] metFORMIN [Glucophage] 850 mg PO TID 12/19/17 [History] 3 Allergy/AdvReac Type Severity Reaction Status Date / Time No Known Drug Allergies Allergy See Verified 12/19/17 14:23 Comments All Systems PM: A 10-system review of systems was performed and is negative for pertinent findings except as documented above in the HPI. - Constitutional Vitals: Temp Pulse Resp BP Pulse Ox 97.9 F 69 16 105/65 98 12/19/17 15:41 12/19/17 15:41 12/19/17 15:41 12/19/17 15:41 12/19/17 15:41 General appearance: Present: A&O X 3, no acute distress - Head Head exam: Present: atraumatic, normocephalic - Eye Eye exam: Present: PERRL, conjuntiva pink, sclera anicteric Pupils: Present: PERRL - Neck Neck exam general surgery: Present: supple, trachea midline. Absent: lymphadenopathy - Respiratory Respiratory exam: Present: CTAB. Absent: accessory muscle use, rales, rhonchi, wheezes - Cardiovascular Cardiovascular exam: Present: RRR, +S1, +S2. Absent: diastolic murmur, gallop, rubs, systolic murmur - GI/Abdominal GI/Abdominal exam: Present: normal bowel sounds, soft, no peritoneal signs. Absent: distended, tenderness - Extremities Exam Extremities exam: Present: warm, radial pulses palpable and symmetrical. Absent : calf tenderness, cyanotic, pedal edema - Neurological Exam Neurological exam: Present: CN II-XII intact, oriented X3, no focal deficits. Absent: pronater drift, facial droop, speech deficit - Skin Skin exam: Present: dry, intact Internal Med - H&P Results - Labs CBC & Chem 7: 12/19/17 12:04 12/19/17 12:04 - Assessment and plan (1) Severe anemia Current Visit: Yes Status: Acute Assessment and plan: Will transfuse total of 4 units of blood and check CBC post transfusion. (2) Gastric adenocarcinoma Current Visit: Yes Status: Acute Assessment and plan: Follow at cancer center. (3) COPD (chronic obstructive pulmonary disease) Current Visit: No Status: Acute Assessment and plan: Resume home respiratory regimen Qualifiers: COPD type: emphysema Emphysema type: unspecified Qualified Code(s): J43.9 - Emphysema, unspecified (4) Diabetes 1.5, managed as type 2 Current Visit: No Status: Chronic Assessment and plan: Glipizide and Metformin (5) DVT prophylaxis Current Visit: No Status: Acute Assessment and plan: Pt ambulates the halls. Contraindication to anticoagulation due to GI bleed. (6) HTN (hypertension) Current Visit: No Status: Chronic Assessment and plan: Lisinopril and Qualifiers: Hypertension type: unspecified Qualified Code(s): I10 - Essential (primary ) hypertension (7) Medical non-compliance Current Visit: Yes Status: Acute Assessment and plan: Pt known to floor nurses. Pt's nurse states charge nurse informed her that pt is typically non-compliant. HE walks off the floor and roams the unit. He has also been using profanity and yelling at staff members on the unit. - Time Spent With Patient Total time spent is greater than 50% in coordination of care (as documented) at patient's floor/unit and/or counseling patient: 25 - 35 minutes
[2017-12-19] MEDS ORDERED: Furosemide 20 MG/2 ML VIAL IVP ONE (16:12)
[2017-12-19] MEDS ORDERED: Acetaminophen 325 MG TABLET PO ONE (16:12)
[2017-12-19] MEDS ORDERED: Magic Mouthwash 10 ML UD Cup PO PRN (16:21)
[2017-12-19] MEDS ORDERED: Diphenoxylate/Atropine 1 TAB TABLET PO PRN (16:21)
[2017-12-19] MEDS ORDERED: Naloxone 0.4 MG/ML INJ IVP PRN (16:23)
[2017-12-19] MEDS ORDERED: 0.9 % Sodium Chloride 250 ML ONE ×2 (17:55→21:58)
[2017-12-19] MEDS: *HR* Metformin 850 MG TABLET PO SCH (18:07)
[2017-12-19] MEDS: *HR* GlipiZIDE 5 MG TABLET PO SCH (18:07)
[2017-12-19] MEDS: Ascorbic Acid 500 MG TABLET PO SCH (20:35)
[2017-12-19] MEDS: Desitin (Zinc Oxide) 56 GM TUBE TP SCH (20:37)
[2017-12-19] MEDS: Ondansetron ODT 4 MG TAB.RAPDIS PO SCH (20:37)
[2017-12-20] MEDS: Ondansetron ODT 4 MG TAB.RAPDIS PO SCH ×3 (00:51→08:59)
[2017-12-20] MEDS ORDERED: 0.9 % Sodium Chloride 250 ML ONE (02:44)
[2017-12-20 06:43] LABS: Basophils % 0.6 %; Eosinophils # 0.1 K/mcL (0.0-0.6); Eosinophils % 1.9 %; Hematocrit 28.3 % (37.5-50.1); Hemoglobin 8.9 g/dL (12.9-16.9); Immature Granulocytes % 1.4 % (0-4); Lymphocytes # 0.4 K/mcL (0.6-4.6); Lymphocytes % 7.4 %; Mean Corpuscular HGB Conc 31.4 g/dL (31.6-35.5); Mean Corpuscular Hemoglobin 26.6 pg (28.0-33.3); Mean Corpuscular Volume 84.5 fL (83.0-100.0); Mean Platelet Volume 10.3 fL (9.4-12.4); Monocytes # 0.4 K/mcL (0.0-1.3); Monocytes % 7.8 %; Neutrophils # 4.2 K/mcL (1.6-8.9); Nucleated Red Blood Cells 0.4 /100 WBC (0); Platelet Count 219 K/mcL (140-400); Red Blood Count 3.35 M/mcL (4.19-5.50); Red Cell Distribution Width 17.2 % (11.5-14.5); Segmented Neutrophils % 80.9 %
[2017-12-20 07:09] VITALS: BP 144/75
[2017-12-20] MEDS: Desitin (Zinc Oxide) 56 GM TUBE TP SCH (08:58)
[2017-12-20] MEDS: Ascorbic Acid 500 MG TABLET PO SCH (08:58)
[2017-12-20] MEDS: *HR* GlipiZIDE 5 MG TABLET PO SCH (08:59)
[2017-12-20] MEDS: *HR* Metformin 850 MG TABLET PO SCH (08:59)
[2017-12-20] MEDS ORDERED: Cholecalciferol (D-3) 1,000 UNIT TABLET PO SCH (09:00)
[2017-12-20] MEDS ORDERED: Lisinopril 20 MG TABLET PO SCH (09:00)
[2017-12-20] MEDS ORDERED: Folic Acid 1 MG TABLET PO SCH (09:00)
[2017-12-20] MEDS ORDERED: Patient Taking Own Medication 1 EACH PO SCH (09:00)
[2017-12-20] MEDS ORDERED: Tiotropium 18 MCG inhalation IH SCH (10:00)
--- NOTE | 2017-12-20 14:20 | Discharge Summary ---
- NOTES TO OUTPATIENT PROVIDER Notes to Outpatient Provider: Patient to have hemoglobin monitored weekly for acute on chronic anemia Date of Encounter: 12/20/17 Time of Encounter: 11:00 Hospital course: Patient is a 72-year-old male with past medical history significant for gastric adenocarcinoma, diabetes hypertension TAMELA and COPD who presented to the ER on 12/19/17 due to low hemoglobin discovered at oncologist office. Patient was found to have a hgb 5.5. He has had recurrent blood transfusions in the past. The patient currently undergoes radiation therapy for his cancer. During patients overnight hospital stay he was transfused a total of 4 units of packed red blood cells and his hemoglobin improved to 8.9. Patient will be discharged to follow-up with hematology oncologist. - Time Spent with Patient Total time spent providing and/or coordinating discharge services: Less than 30 minutes - Discharge Medications Home Medications: Magic Mouthwash [Magic Mouthwash BLM] 10 ml PO QID PRN #240 ml 12/04/16 [Rx] Ondansetron HCl [Zofran] 4 mg PO Q4HR #30 tablet 02/11/17 [Rx] Hydrocortisone 2.5% CREAM [Cortaid] 1 appl TP BID #1 tube 07/08/17 [Rx] DiphenhydraMINE [Benadryl] 1 tab PO BID PRN #30 capsule 08/12/17 [Rx] Diphenoxylate/Atropine [Lomotil 2.5 mg/0.025 mg] 1 each PO QID PRN 7 Days #30 tablet 09/14/17 [Rx] Desitin (Zinc Oxide) [Desitin] 1 appl TP TID #1 tube 09/15/17 [Rx] Albuterol Sulfate [Albuterol Inhaler] 2 puff IH Q4HR PRN 12/19/17 [History] Ascorbic Acid [Vitamin C] 250 mg PO TID 12/19/17 [History] Cholecalciferol (D-3) [Vitamin D] 2,000 unit PO DAILY 12/19/17 [History] Citalopram [CeleXA] 20 mg PO DAILY 12/19/17 [History] Colestipol HCl [Colestid] 2 gm PO DAILY 12/19/17 [History] Folic Acid 1 mg PO DAILY 12/19/17 [History] Lisinopril [Zestril] 20 mg PO DAILY 12/19/17 [History] Omeprazole [PriLOSEC] 20 mg PO BIDAC 12/19/17 [History] Simvastatin [Zocor] 40 mg PO HS 12/19/17 [History] Tiotropium [place] [Spiriva Respimat] 2 puff IH DAILY 12/19/17 [History] Zolpidem [Ambien] 5 mg PO HS 12/19/17 [History] glipiZIDE [Glipizide] 10 mg PO BID 12/19/17 [History] metFORMIN [Glucophage] 850 mg PO TID 12/19/17 [History] Allergies/Adverse Reactions: 3 Allergy/AdvReac Type Severity Reaction Status Date / Time No Known Drug Allergies Allergy See Verified 12/19/17 14:23 Comments Date of admission: 12/19/17 13:44 [facility] care physician: [facility] Consults: 12/19/17 15:50 Consult to Nutrition [CONS] Stat Comment: Consulting Provider: NUTRITION Reason for Dietary Consult: MST Score - Constitutional Vitals: Temp Pulse Resp BP Pulse Ox 97.8 F 58 17 144/75 98 12/20/17 07:02 12/20/17 07:02 12/20/17 07:02 12/20/17 07:02 12/20/17 07:02 General appearance: Present: A&O X 3, no acute distress - Respiratory Respiratory exam: Present: CTAB. Absent: accessory muscle use, rales, rhonchi, wheezes - Cardiovascular Cardiovascular exam: Present: RRR, +S1, +S2. Absent: diastolic murmur, gallop, rubs, systolic murmur - Patient Status Disposition: Home, Self-Care Condition: Fair - Discharge Instructions Instructions: Anemia (GEN) Follow Up With: [facility] [Primary Care Provider] - - VTE Reasons for not Prescribing Prophylaxis: Medical contraindication
--- NOTE | 2017-12-21 08:10 | Electrocardiograph Report ---
[place] [id number] Test Date: 2017-12-19 Pat Name: Forrest Abbott Department: 103 Room: 3A24 Gender: M Telephone Exchange Operator: TMR : [id number] Requested By: Uvaldo Foster Order Number: [id number] Reading MD: Grant Rowan Measurements Intervals [place] Rate: 95 P: 35 FL: 164 QRS: -58 QRSD: 105 T: 87 QT: 363 QTc: 416 Interpretive Statements SINUS RHYTHM Poor R wave progression LEFT ANTERIOR FASCICULAR BLOCK Electronically Signed On 12-21-2017 8:08:31 EDT by Grant Rowan
== END 2017-12-20 10:28 | disposition home or self-care (01) ==
LOC: EMEROO 11:08 → 3ANU 11:08 → EMEROO 11:44 → SUATTDRO 13:44 → 3ANU 14:57
PROVIDERS: ADMIT Internal Medicine; ATTEND Hospitalist

== ENCOUNTER 2018-10-08 19:53 | Observation (INO) ==
--- NOTE | 2018-10-08 20:38 | Emergency Department Note ---
Disposition Clinical Impression: Gastric adenocarcinoma, Anemia of chronic disease Disposition: Admitted As Inpatient Condition: Fair Referrals: NONE,PCP [Non-Partnered Physician] - Forms: ED Satisfaction Letter, Work/School Release Time of Disposition: 21:41 General Adult HPI - General Chief complaint: ED General Medical Stated complaint: [facility] Time Seen by Provider: 10/08/18 20:02 Source: patient, family Mode of arrival: wheelchair Limitations: no limitations Nursing Notes Reviewed: Yes Vital Signs Reviewed: Yes - History of Present Illness HPI Narrative: This is a 73-year-old male with past medical history significant for adenocarcinoma of the esophagus who presents with anemia. Patient was sent from [facility] by Dr. Brennan, after his home health group found that he had hemoglobin = 5.7. Patient is transfusion dependent, and has been getting packed red blood cells every 2 weeks. Last transfusion was on 09/23/18. Patient has chronic blood loss from the GI tumor. He is currently reporting fatigue, lethargy, weakness. However otherwise denies any headache, lightheadedness/diz ziness, blurry vision, palpitations, chest pain, difficulty breathing, wheezing, abdominal pain, nausea, vomiting, diarrhea. Patient additionally denies hematemesis, melena, hematochezia, diarrhea, hematuria or any other overt source of bleeding. Pt Subjective Complaint: "Needs Blood" Onset (ago): Just [employer] Pain Scale: 0 Associated symptoms: Reports: weakness, other (Fatigue, weakness). Denies: confusion, chest pain, cough, diaphoresis, fever/chills, headaches, loss of appetite, malaise, nausea/vomiting, shortness of breath Treatments Prior to Arrival: none - Related Data Home Medications Medication Instructions Recorded Confirmed Albuterol Sulfate [Albuterol 2 puff IH Q4HR PRN 12/19/17 09/23/18 Inhaler] Ascorbic Acid [Vitamin C] 250 mg PO TID 12/19/17 09/23/18 Cholecalciferol (D-3) [Vitamin D] 2,000 unit PO DAILY 12/19/17 09/23/18 Colestipol HCl [Colestid] 2 gm PO DAILY 12/19/17 09/23/18 Lisinopril [Zestril] 20 mg PO DAILY 12/19/17 09/23/18 Omeprazole [PriLOSEC] 20 mg PO BIDAC 12/19/17 09/23/18 Simvastatin [Zocor] 40 mg PO HS 12/19/17 09/23/18 Tiotropium [place] [Spiriva 2 puff IH DAILY 12/19/17 09/23/18 Respimat] Zolpidem [Ambien] 5 mg PO HS 12/19/17 09/23/18 glipiZIDE [Glipizide] 10 mg PO BID 12/19/17 09/23/18 metFORMIN [Glucophage] 850 mg PO TID 12/19/17 09/23/18 Aspirin [Lo-Dose Aspirin EC] 81 mg PO DAILY 01/01/18 09/23/18 Cyanocobalamin (B-12) [Vitamin B12] 1,000 mcg IM Q30D 04/22/18 09/23/18 Ferric Carboxymaltose [Injectafer] 750 mg IV Q30D 04/22/18 09/23/18 Pembrolizumab [Keytruda] 1 each IV Q30D 04/22/18 09/23/18 Previous Rx's Medication Instructions Recorded Citalopram [CeleXA] 20 mg PO DAILY #30 tablet 03/04/18 Levothyroxine [Synthroid] 150 mcg PO DAILY #30 tablet 07/09/18 Levothyroxine [Synthroid] 175 mcg PO DAILY #30 tablet 07/22/18 Tamsulosin [Flomax] 0.4 mg PO DAILY #30 cap.er.24h 09/02/18 Allergies Allergy/AdvReac Type Severity Reaction Status Date / Time No Known Drug Allergies Allergy See Verified 10/08/18 20:00 Comments All systems ED: reviewed and negative except as stated. Constitutional: Reports: weakness. Denies: fever, chills, night sweats Eyes: Denies: vision change ENT ED: Denies: hearing loss Cardiovascular: Denies: chest pain, palpitations, dyspnea on exertion, syncope Respiratory: Denies: dyspnea, wheezes, hemoptysis Gastrointestinal: Denies: abdominal pain, nausea, vomiting, diarrhea, hematemesis, melena, hematochezia Genitourinary: Denies: dysuria, hematuria Musculoskeletal: Denies: back pain, neck pain Neurological: Reports: weakness. Denies: headache Past Medical History - Past Medical History Attestation: Yes The following information was validated with the patient. Source: patient, old records reviewed, obtained from family Medical history: Reports: aortic aneurysm, cancer, COPD, CVA, diabetes, hyperlipidemia, hypertension, other Surgical history: Reports: other Psychiatric history: Reports: no psych history - Social History Smoking Status: Current every day smoker Smokeless Tobacco Status: No Alcohol use: Reports: none Drug use: Reports: none Physical Exam - General Limitations: no limitations General appearance: alert, in no apparent distress - Head Head exam: atraumatic, normocephalic, normal inspection - Eye Eye exam: Present: normal appearance, PERRL, EOMI, other (Pelvic conjunctiva) - ENT ENT exam: normal exam, normal oropharynx, mucous membranes dry - Neck Neck exam: Present: normal inspection, full ROM. Absent: lymphadenopathy - Chest Chest inspection: Present: normal inspection, symmetric chest wall rise - Respiratory Respiratory exam: Present: normal lung sounds bilaterally - Cardiovascular Cardiovascular exam: Present: regular rate, normal rhythm, systolic murmur (3/6 systolic murmur best heard in the right parasternal second intercostal space.), +S1, +S2 - Expanded Cardiovascular Exam Type of murmur: systolic Location of murmur: RUSB Intensity of murmur: 3/6 Peripheral pulses: 2+: radial (R), radial (L) - Abdominal Exam Abdominal exam: Present: soft, Non-Tender, normal bowel sounds. Absent: tenderness, distention, guarding, rebound, rigidity - Extremities Exam Extremities exam: Present: normal inspection, full ROM, other (Delayed capillary refill) - Neurological Exam Neurological exam: Present: alert, oriented X3 - Psychiatric Psychiatric exam: Present: normal affect, normal mood - Skin Skin exam: Present: warm, dry, intact Course - Reevaluation(s) Reevaluation #1: Patient seen and examined at bedside. On exam, patient had pale conjunctiva, delayed capillary refill, dry mucous membranes. We will order 2 units of packed red blood cells. Additionally we will order CBC, type and screen, PT/INR, BMP. Spoke with admitting hospitalist, Dr. Colindres, who agreed to accept patient. Time: 21:38 Vital Signs Temperature 99.1 F 10/08/18 19:54 Pulse Rate 83 10/08/18 19:54 Respiratory Rate 18 10/08/18 19:54 Blood Pressure 118/81 10/08/18 19:54 O2 Sat by Pulse Oximetry 100 10/08/18 19:54 Temperature 99.1 F 10/08/18 19:54 Pulse Rate 83 10/08/18 19:54 Respiratory Rate 18 10/08/18 19:54 Blood Pressure 118/81 10/08/18 19:54 O2 Sat by Pulse Oximetry 100 10/08/18 19:54 Oxygen Delivery Oxygen Delivery Room Air Medical Decision Making - MDM Narrative Medical decision making narrative: 73-year-old male with past medical history seems to for adenocarcinoma of the esophagus presents from home with hemoglobin = 5.7. Patient has chronic blood loss anemia due to GI tumor. Has necessitated transfusions every 2 weeks. On exam, patient is in no acute distress, but otherwise has symptoms of anemia including pelvic conjunctiva, delayed capillary refill, dry mucous membranes. Likely secondary to anemia of chronic disease. Patient well-known the cancer center and has had similar problems in the past. Last transfusion was on 09/23/18. Order routine labs, and transfused 2 units of packed red blood cells. Spoke with the hospitalist, Dr. Colindres, who agreed to accept patient. Patient will be admitted for observation. - Differential Diagnosis Anemia of Chronic Disease - Medical Records Medical records reviewed: Yes I reviewed the patient's medical records. - Lab Data Lab results reviewed: Yes I reviewed the patient's lab results. - Radiology Data Radiology results reviewed: Yes I reviewed the patient's radiology results.
[2018-10-08] MEDS ORDERED: Dextrose Gel 15 GM/37.5 ML TUBE PO PRN ×2 (21:32)
[2018-10-08] MEDS ORDERED: Ipratropium/Albuterol Neb 3 ML IH PRN (21:32)
[2018-10-08] MEDS ORDERED: *HR* Dextrose 50 % in Water (Syg) 50 ML SYRINGE IVP PRN (21:32)
[2018-10-08 21:39] LABS: Basophils % 0.2 %; Hematocrit 18.5 % (37.5-50.1); Immature Granulocytes % 0.7 % (0-4); Lymphocytes % 6.9 %; Mean Corpuscular HGB Conc 28.1 g/dL (31.6-35.5); Mean Corpuscular Hemoglobin 24.6 pg (28.0-33.3); Mean Corpuscular Volume 87.7 fL (83.0-100.0); Mean Platelet Volume 10.1 fL (9.4-12.4); Platelet Count 333 K/mcL (140-400); Red Blood Count 2.11 M/mcL (4.19-5.50); Red Cell Distribution Width 21.2 % (11.5-14.5); Segmented Neutrophils % 74.2 %
[2018-10-08 21:40] LABS: Eosinophils # 0.5 K/mcL (0.0-0.6); Lymphocytes # 0.4 K/mcL (0.6-4.6); Monocytes # 0.5 K/mcL (0.0-1.3); Neutrophils # 4.3 K/mcL (1.6-8.9)
[2018-10-08] MEDS ORDERED: Insulin LISPRO 300 UNITS/3 ML VIAL SQ SCH (21:45)
[2018-10-08 21:47] LABS: Hemoglobin 5.2 g/dL (12.9-16.9)
[2018-10-08 21:49] LABS: INR 1.1; Prothrombin Time 12.2 Seconds (9.4-12.1)
--- NOTE | 2018-10-08 21:53 | Emergency Department Note ---
Disposition Clinical Impression: Gastric adenocarcinoma, Anemia of chronic disease Disposition: Admitted As Inpatient Condition: Fair Referrals: NONE,PCP [Non-Partnered Physician] - Forms: ED Satisfaction Letter, Work/School Release General Adult HPI - General Chief complaint: ED General Medical Stated complaint: sent by [place] [facility], needs blood Time Seen by Provider: 10/08/18 20:02 Source: patient, family Mode of arrival: wheelchair Limitations: no limitations - History of Present Illness Pain Scale: 0 Associated symptoms: Reports: weakness, other (Fatigue, weakness). Denies: con fusion, chest pain, cough, diaphoresis, fever/chills, headaches, loss of appetite, malaise, nausea/vomiting, shortness of breath Treatments Prior to Arrival: none - Related Data Home Medications Medication Instructions Recorded Confirmed Albuterol Sulfate [Albuterol 2 puff IH Q4HR PRN 12/19/17 09/23/18 Inhaler] Ascorbic Acid [Vitamin C] 250 mg PO TID 12/19/17 09/23/18 Cholecalciferol (D-3) [Vitamin D] 2,000 unit PO DAILY 12/19/17 09/23/18 Colestipol HCl [Colestid] 2 gm PO DAILY 12/19/17 09/23/18 Lisinopril [Zestril] 20 mg PO DAILY 12/19/17 09/23/18 Omeprazole [PriLOSEC] 20 mg PO BIDAC 12/19/17 09/23/18 Simvastatin [Zocor] 40 mg PO HS 12/19/17 09/23/18 Tiotropium [place] [Spiriva 2 puff IH DAILY 12/19/17 09/23/18 Respimat] Zolpidem [Ambien] 5 mg PO HS 12/19/17 09/23/18 glipiZIDE [Glipizide] 10 mg PO BID 12/19/17 09/23/18 metFORMIN [Glucophage] 850 mg PO TID 12/19/17 09/23/18 Aspirin [Lo-Dose Aspirin EC] 81 mg PO DAILY 01/01/18 09/23/18 Cyanocobalamin (B-12) [Vitamin B12] 1,000 mcg IM Q30D 04/22/18 09/23/18 Ferric Carboxymaltose [Injectafer] 750 mg IV Q30D 04/22/18 09/23/18 Pembrolizumab [Keytruda] 1 each IV Q30D 04/22/18 09/23/18 Previous Rx's Medication Instructions Recorded Citalopram [CeleXA] 20 mg PO DAILY #30 tablet 03/04/18 Levothyroxine [Synthroid] 150 mcg PO DAILY #30 tablet 07/09/18 Levothyroxine [Synthroid] 175 mcg PO DAILY #30 tablet 07/22/18 Tamsulosin [Flomax] 0.4 mg PO DAILY #30 cap.er.24h 09/02/18 Allergies Allergy/AdvReac Type Severity Reaction Status Date / Time No Known Drug Allergies Allergy See Verified 10/08/18 20:00 Comments Constitutional: Reports: weakness. Denies: fever, chills, night sweats Eyes: Denies: vision change ENT ED: Denies: hearing loss Cardiovascular: Denies: chest pain, palpitations, dyspnea on exertion, syncope Respiratory: Denies: dyspnea, wheezes, hemoptysis Gastrointestinal: Denies: abdominal pain, nausea, vomiting, diarrhea, hematemesis, melena, hematochezia Genitourinary: Denies: dysuria, hematuria Musculoskeletal: Denies: back pain, neck pain Neurological: Reports: weakness. Denies: headache Past Medical History - Past Medical History Medical history: Reports: aortic aneurysm, cancer, COPD, CVA, diabetes, hyperlipidemia, hypertension, other Surgical history: Reports: other Psychiatric history: Reports: no psych history - Social History Smoking Status: Current every day smoker Smokeless Tobacco Status: No Alcohol use: Reports: none Drug use: Reports: none Physical Exam - General Limitations: no limitations General appearance: alert, in no apparent distress Course Vital Signs Temperature 99.1 F 10/08/18 19:54 Pulse Rate 83 10/08/18 19:54 Respiratory Rate 18 10/08/18 19:54 Blood Pressure 118/81 10/08/18 19:54 O2 Sat by Pulse Oximetry 100 10/08/18 19:54 Temperature 99.1 F 10/08/18 19:54 Pulse Rate 83 10/08/18 19:54 Respiratory Rate 18 10/08/18 19:54 Blood Pressure 118/81 10/08/18 19:54 O2 Sat by Pulse Oximetry 100 10/08/18 19:54 Oxygen Delivery Oxygen Delivery Room Air Medical Decision Making - Lab Data Result diagrams: 10/08/18 20:46 Lab Results 10/08/18 10/08/18 Range/Units 20:46 20:58 WBC 5.8 (4.3-11.1) K/mcL RBC 2.11 L (4.19-5.50) M/mcL Hgb 5.2 L* (12.9-16.9) g/dL Hct 18.5 L (37.5-50.1) % MCV 87.7 D (83.0-100.0) fL MCH 24.6 L (28.0-33.3) pg MCHC 28.1 L (31.6-35.5) g/dL RDW 21.2 H (11.5-14.5) % Plt Count 333 (140-400) K/mcL MPV 10.1 (9.4-12.4) fL PT 12.2 H (9.4-12.1) Seconds INR 1.1 Attestation Statement - Attestation Attestation: I examined this patient and my medical decision-making was reviewed with the SECURITY VEHICLE PATROL OFFICER/PA/Advanced Practice Nurse/Resident Physician. I agree with the documented findings, disposition and treatment plan as described except to the extent set forth below. I did see the patient spoke with him and his , he is pale in appearance, does have esophageal cancer, did have a hemoglobin just over 5 which was done earlier today. The patient will receive 2 units IV blood transfusion. He does not have any blood in the stool. No hematemesis. No blood in the urine. He has had transfusions in the past. [id number]
[2018-10-08 21:55] LABS: BUN/Creatinine Ratio 31 (6-26); Blood Urea Nitrogen 25 mg/dL (8-23); Calcium 8.9 mg/dL (8.6-10.3); Carbon Dioxide 25 mEq/L (23-29); Chloride 103 mEq/L (98-107); Glucose 119 mg/dL (70-105); Osmolality,Calculated 288 (280-300); Potassium 4.3 mEq/L (3.5-5.1); Sodium 136 mEq/L (136-145); eGFR For Non-African Americans > 60 (> 60)
[2018-10-08 22:11] LABS: Hypochromasia Present (Not Present); Microcytosis Present (Not Present); Polychromasia 1+ (Not Present)
--- NOTE | 2018-10-08 22:13 | Internal Med History&Physical ---
Date of Encounter: 10/08/18 Time of Encounter: 22:10 Internal Medicine - H&P: HPI Chief complaint: low hgb Admitted From: Home Plans for Post Hospital Care: Home History of present illness: Forrest Abbott is a 73-year-old male with adenocarcinoma affecting the GE junction and gastric body diagnosed in August 2016 having received concurrent chemoradiation as he is not a candidate for surgery due to advanced COPD. Due to chronic blood loss he frequently undergoes transfusions periodically, at least once a month as well as parenteral iron therapy. Today he was called by his home health company with critical lab of hemoglobin 5.7. His last blood transfusion was of 2 units on 09/23/18. Presents to the ER in no distress with no complaints other than fatigue and weakness. He denies chest and abdominal pain. Denies hematemesis, nausea, vomiting or diarrhea. Says his stool is dark brown but chronic as such. Labs repeated here showed a hemoglobin of 5.2. He is admitted for further care. Vitals: Reviewed General: Cachectic male lying in bed in no acute distress. Skin: Dry, pale and warm. HEENT: Moist mucous membranes. + conjunctivae pallor. Neck:. No JVD. No carotid bruits. No palpable thyroid. Chest: Barrel chest. Chemoport on right upper chest. Normal breath sounds. Clear to auscultation. Heart: Normal S1 & S2; rhythmic. No rubs or murmurs. Abdomen: Non-distended, soft and non-tender to palpation. No peritoneal reaction. Extremities: + clubbing. No cyanosis or edema. No calf tenderness. Normal distal pulses. Neurological: Awake, alert and oriented to person, place and time. No focal deficits. Psych: Affect appropriate. Past Med Surg Social Fam HX - Past Medical History Medical history: aortic aneurysm, cancer, COPD, CVA, diabetes, hyperlipidemia, hypertension, other Additional medical history: SMOKER Psychiatric history: no psych history - Past Surgical History Surgical History: other Additional surgical history: egd, colonoscopy - Social History Smoking Status: Current every day smoker Smokeless Tobacco Status: No Alcohol use: none Drug use: none Internal Medicine - H&P: Meds Albuterol Sulfate [Albuterol Inhaler] 2 puff IH Q4HR PRN 12/19/17 [History] Ascorbic Acid [Vitamin C] 250 mg PO TID 12/19/17 [History] Cholecalciferol (D-3) [Vitamin D] 2,000 unit PO DAILY 12/19/17 [History] Colestipol HCl [Colestid] 2 gm PO DAILY 12/19/17 [History] Lisinopril [Zestril] 20 mg PO DAILY 12/19/17 [History] Omeprazole [PriLOSEC] 20 mg PO BIDAC 12/19/17 [History] Simvastatin [Zocor] 40 mg PO HS 12/19/17 [History] Tiotropium [place] [Spiriva Respimat] 2 puff IH DAILY 12/19/17 [History] Zolpidem [Ambien] 5 mg PO HS 12/19/17 [History] glipiZIDE [Glipizide] 10 mg PO BID 12/19/17 [History] metFORMIN [Glucophage] 850 mg PO TID 12/19/17 [History] Aspirin [Lo-Dose Aspirin EC] 81 mg PO DAILY 01/01/18 [History] Citalopram [CeleXA] 20 mg PO DAILY #30 tablet 03/04/18 [Rx] Cyanocobalamin (B-12) [Vitamin B12] 1,000 mcg IM Q30D 04/22/18 [History] Ferric Carboxymaltose [Injectafer] 750 mg IV Q30D 04/22/18 [History] Pembrolizumab [Keytruda] 1 each IV Q30D 04/22/18 [History] Levothyroxine [Synthroid] 150 mcg PO DAILY #30 tablet 07/09/18 [Rx] Levothyroxine [Synthroid] 175 mcg PO DAILY #30 tablet 07/22/18 [Rx] Tamsulosin [Flomax] 0.4 mg PO DAILY #30 cap.er.24h 09/02/18 [Rx] Allergy/AdvReac Type Severity Reaction Status Date / Time No Known Drug Allergies Allergy See Verified 10/08/18 20:00 Comments All Systems PM: A 10-system review of systems was performed and is negative for pertinent findings except as documented above in the HPI. Family history reviewed and found non-contributory. - Constitutional Vitals: Temp Pulse Resp BP Pulse Ox 99.1 F 83 18 118/81 100 10/08/18 19:54 10/08/18 19:54 10/08/18 19:54 10/08/18 19:54 10/08/18 19:54 Exam: . Internal Med - H&P Results - Labs CBC & Chem 7: 10/08/18 20:46 10/08/18 20:58 Labs: Short CBC 10/08/18 Range/Units 20:46 WBC 5.8 (4.3-11.1) K/mcL Hgb 5.2 L* (12.9-16.9) g/dL Hct 18.5 L (37.5-50.1) % Plt Count 333 (140-400) K/mcL BMP 10/08/18 20:58 Sodium 136 Potassium 4.3 Chloride 103 Carbon Dioxide 25 BUN 25 H Creatinine 0.80 Glucose 119 H Calcium 8.9 - Assessment and Plan (1) Symptomatic anemia Current Visit: Yes Status: Acute Assessment and plan: Secondary to blood loss from GI tract malignancy. Will transfuse at least 2U pRBC overnight and recheck. Continue iron therapies. OP f/u w/ Dr Montes. (2) COPD (chronic obstructive pulmonary disease) Current Visit: Yes Status: Chronic Assessment and plan: Currently asymptomatic. Placed on long acting daily agents with albuterol prn. Qualifiers: COPD type: unspecified COPD Qualified Code(s): J44.9 - Chronic obstructive pulmonary disease, unspecified (3) History of gastric cancer Current Visit: Yes Status: Acute Assessment and plan: Continue follow-up with medical oncology. (4) Weight loss, non-intentional Current Visit: Yes Status: Acute Assessment and plan: By mouth protein supplements advised. He will benefit from mounting machine operator consultation. (5) HTN (hypertension) Current Visit: Yes Status: Chronic Assessment and plan: Resume oral antihypertensive therapy once feasible. Qualifiers: Hypertension type: essential hypertension Qualified Code(s): I10 - Essential (primary) hypertension (6) DVT prophylaxis Current Visit: Yes Status: Acute Assessment and plan: IPC ordered. - Time Spent With Patient Total time spent is greater than 50% in coordination of care (as documented) at patient's floor/unit and/or counseling patient: Greater than 35 minutes
[2018-10-09] MEDS ORDERED: 0.9 % Sodium Chloride 250 ML ONE ×4 (00:45→15:28)
[2018-10-09] MEDS: Insulin LISPRO 300 UNITS/3 ML VIAL SQ SCH ×3 (08:21→17:27)
[2018-10-09] MEDS ORDERED: Lisinopril 20 MG TABLET PO SCH (09:00)
[2018-10-09] MEDS ORDERED: Cholecalciferol (D-3) 1,000 UNIT TABLET PO SCH (09:00)
[2018-10-09] MEDS ORDERED: Tiotropium 18 MCG inhalation IH SCH (10:00)
[2018-10-09 11:05] LABS: Hematocrit 22.1 % (37.5-50.1); Hemoglobin 6.6 g/dL (12.9-16.9)
[2018-10-09] MEDS ORDERED: Furosemide 20 MG/2 ML VIAL IVP ONE (13:21)
--- NOTE | 2018-10-09 13:30 | Internal Med Progress Note ---
Hospitalist Progress Note - Encounter Date of Encounter: 10/09/18 Time of Encounter: 09:00 - Subjective Interval History: Patient denies pain or discomfort. Patient's is at bedside on exam. Vitals are stable. - Exam Vitals: Temp Pulse Resp BP Pulse Ox 98.9 F 70 17 110/54 94 10/09/18 12:23 10/09/18 12:23 10/09/18 12:23 10/09/18 12:23 10/09/18 12:23 Exam: Pt is AAO x 3, in NAD, thin built HEENT: NC/AT, PERRL Neck: Supple, no JVD, no LAD Lungs: CTA b/l Heart: S1S2, RRR, 2/6 systolic murmur Abd: Soft, nontender, BS present Ext: ROM wnl, no pedal edema Neuro: No focal deficit . - Assessment and Plan (1) HTN (hypertension) Current Visit: Yes Status: Chronic Assessment and Plan: Resume oral antihypertensive medications home dose (2) Weight loss, non-intentional Current Visit: Yes Status: Acute Assessment and Plan: Likely due to malignancy. By mouth protein supplements advised. (3) History of gastric cancer Current Visit: Yes Status: Acute Assessment and Plan: Continue follow-up with medical oncology. (4) COPD (chronic obstructive pulmonary disease) Current Visit: Yes Status: Chronic Assessment and Plan: Currently asymptomatic. Placed on long acting daily agents with albuterol prn. (5) DVT prophylaxis Current Visit: Yes Status: Acute Assessment and Plan: EPCDs ordered. No anticoagulation because of low H&H. (6) Symptomatic anemia Current Visit: Yes Status: Acute Assessment and Plan: Secondary to blood loss from GI tract malignancy. Hgb 6.6 after 2 units of PRBC, will give another 2 units PRBC transfusion. Patient denies hx of CHF, however, will give low dose Lasix between 2 units considering patient's age and general conditions. Continue iron therapies. OP f/u w/ oncology - Time Spent with Patient Total time spent is greater than 50% in coordination of care (as documented) at patient's floor/unit and/or counseling patient: 30 minutes 25 - 35 minutes Plan of Care Discussed with: patient Internal Medicine: Result - Labs CBC & Chem 7: 10/09/18 10:35 10/08/18 20:58 Labs: Short CBC 10/08/18 10/09/18 Range/Units 20:46 10:35 WBC 5.8 (4.3-11.1) K/mcL Hgb 5.2 L* 6.6 L (12.9-16.9) g/dL Hct 18.5 L 22.1 L (37.5-50.1) % Plt Count 333 (140-400) K/mcL Neutrophils # 4.3 (1.6-8.9) K/mcL BMP 10/08/18 20:58 Sodium 136 Potassium 4.3 Chloride 103 Carbon Dioxide 25 BUN 25 H Creatinine 0.80 Glucose 119 H Calcium 8.9 - ABG Interpretation ABG results: PT/INR, D-dimer PT 12.2 Seconds (9.4-12.1) H 10/08/18 20:58 Consult Discharge Plan - Plan [facility] Care Provider[facility] - (1) HTN (hypertension) Qualifiers: Hypertension type: essential hypertension Qualified Code(s): I10 - Essential (primary) hypertension (4) COPD (chronic obstructive pulmonary disease) Qualifiers: COPD type: unspecified COPD Qualified Code(s): J44.9 - Chronic obstructive pulmonary disease, unspecified
--- NOTE | 2018-10-09 17:44 | Discharge Summary ---
Orders not resulted at time of discharge: Pending orders 10/10/18 04:00 H/H [Hemoglobin and Hematocrit] [HEME] AM 0400 Date of Encounter: 10/09/18 Time of Encounter: 17:00 - Discharge Diagnosis (1) HTN (hypertension) Priority: Secondary Status: Chronic Qualifiers: Hypertension type: essential hypertension Qualified Code(s): I10 - Essential (primary) hypertension (2) Weight loss, non-intentional Priority: Secondary Status: Acute (3) History of gastric cancer Priority: Secondary Status: Acute (4) COPD (chronic obstructive pulmonary disease) Priority: Secondary Status: Chronic Qualifiers: COPD type: unspecified COPD Qualified Code(s): J44.9 - Chronic obstructive pulmonary disease, unspecified (5) DVT prophylaxis Priority: Secondary Status: Acute (6) Symptomatic anemia Priority: Primary Status: Acute Hospital course: Mr. Abbott is a 73 year old male with hx of gastric cancer who needs frequent transfusion admitted as symptomatic anemia with Hgb 5.2. Pt was transfused 2 units of PRBC and Hgb increased to 6.6. Will give 2 more units of PRBC. Will give 20mg lasix between this 2 units PRBC. Otherwise pt has no further needs. Will consider conditional d/c pt home after transfusion. I have seen and examined the patient today. Patient denies pain or discomfort. Vitals are stable. Patient's at bedside, states that they will continue follow-up with oncology as outpatient after discharge. - Time Spent with Patient Total time spent providing and/or coordinating discharge services: - Discharge Medications Prescriptions: Continue Albuterol Sulfate [Albuterol Inhaler] 2 puff IH Q4HR PRN PRN Reason: Shortness Of Breath Ascorbic Acid [Vitamin C] 250 mg PO BID Cholecalciferol (D-3) [Vitamin D] 2,000 unit PO DAILY Colestipol HCl [Colestid] 2 gm PO DAILY glipiZIDE [Glipizide] 10 mg PO BID Lisinopril [Zestril] 20 mg PO DAILY metFORMIN [Glucophage] 850 mg PO TID Omeprazole [PriLOSEC] 20 mg PO BIDAC Simvastatin [Zocor] 40 mg PO HS Tiotropium [place] [Spiriva Respimat] 2 puff IH DAILY Zolpidem [Ambien] 5 mg PO HS Aspirin [Lo-Dose Aspirin EC] 81 mg PO DAILY Citalopram [CeleXA] 20 mg PO DAILY #30 tablet Ferric Carboxymaltose [Injectafer] 750 mg IV Q30D Cyanocobalamin (B-12) [Vitamin B12] 1,000 mcg IM Q30D Pembrolizumab [Keytruda] 1 each IV Q30D Levothyroxine [Synthroid] 175 mcg PO DAILY #30 tablet Tamsulosin [Flomax] 0.4 mg PO DAILY #30 cap.er.24h Levothyroxine [Synthroid] 100 mcg PO DAILY Home Medications: Albuterol Sulfate [Albuterol Inhaler] 2 puff IH Q4HR PRN 12/19/17 [History] Ascorbic Acid [Vitamin C] 250 mg PO BID 12/19/17 [History] Cholecalciferol (D-3) [Vitamin D] 2,000 unit PO DAILY 12/19/17 [History] Colestipol HCl [Colestid] 2 gm PO DAILY 12/19/17 [History] Lisinopril [Zestril] 20 mg PO DAILY 12/19/17 [History] Omeprazole [PriLOSEC] 20 mg PO BIDAC 12/19/17 [History] Simvastatin [Zocor] 40 mg PO HS 12/19/17 [History] Tiotropium [place] [Spiriva Respimat] 2 puff IH DAILY 12/19/17 [History] Zolpidem [Ambien] 5 mg PO HS 12/19/17 [History] glipiZIDE [Glipizide] 10 mg PO BID 12/19/17 [History] metFORMIN [Glucophage] 850 mg PO TID 12/19/17 [History] Aspirin [Lo-Dose Aspirin EC] 81 mg PO DAILY 01/01/18 [History] Citalopram [CeleXA] 20 mg PO DAILY #30 tablet 03/04/18 [Rx] Cyanocobalamin (B-12) [Vitamin B12] 1,000 mcg IM Q30D 04/22/18 [History] Ferric Carboxymaltose [Injectafer] 750 mg IV Q30D 04/22/18 [History] Pembrolizumab [Keytruda] 1 each IV Q30D 04/22/18 [History] Levothyroxine [Synthroid] 175 mcg PO DAILY #30 tablet 07/22/18 [Rx] Tamsulosin [Flomax] 0.4 mg PO DAILY #30 cap.er.24h 09/02/18 [Rx] Levothyroxine [Synthroid] 100 mcg PO DAILY 10/08/18 [History] Allergies/Adverse Reactions: Allergy/AdvReac Type Severity Reaction Status Date / Time No Known Drug Allergies Allergy See Verified 10/08/18 20:00 Comments Date of admission: 10/08/18 22:11 [facility] care physician: [facility] Consults: 10/08/18 23:16 Consult to Nutrition [CONS] Routine Comment: Consulting Provider: NUTRITION Reason for Dietary Consult: MST Score Discharging clinician: Stevie Villalta Anticipated date of discharge: 10/09/18 - Constitutional Vitals: Temp Pulse Resp BP Pulse Ox 98.2 F 69 19 118/65 95 10/09/18 16:35 10/09/18 16:35 10/09/18 16:35 10/09/18 16:35 10/09/18 16:35 Exam: Pt is AAO x 3, in NAD, thin built HEENT: NC/AT, PERRL Neck: Supple, no JVD, no LAD Lungs: CTA b/l Heart: S1S2, RRR, 2/6 systolic murmur Abd: Soft, nontender, BS present Ext: ROM wnl, no pedal edema Neuro: No focal deficit . - Patient Status Disposition: Home Health Service Condition: Fair Functional capacity at discharge: uses cane/walker Overall status at discharge: patient is progressing back to baseline - Discharge Instructions Follow Up With: [facility] [Primary Care Provider] - - Diet and Activity Activity: increase activity as tolerated Diet: advance to your usual diet, other (Mechanical soft diet)
--- NOTE | 2018-10-09 18:30 | Physician Discharge Referral ---
Home Health/Hosp Referral Info Transfer to: Home Health Provider in Charge Post Discharge: PCP - Diagnosis (1) HTN (hypertension) Status: Chronic (2) Weight loss, non-intentional Status: Acute (3) History of gastric cancer Status: Acute (4) COPD (chronic obstructive pulmonary disease) Status: Chronic (5) DVT prophylaxis Status: Acute (6) Symptomatic anemia Status: Acute - Respiratory Orders Smoking Cessation: Smoking cessation has been advised. For more information, call the [place] Tobacco Quit Line at 3-564-NMSH-NOW. - Services Needed Following services are medically necessary services: Nursing, Home Health Aide, Physical Therapy, Occupational Therapy - Transfer Medications Home Medications: Albuterol Sulfate [Albuterol Inhaler] 2 puff IH Q4HR PRN 12/19/17 [History] Ascorbic Acid [Vitamin C] 250 mg PO BID 12/19/17 [History] Cholecalciferol (D-3) [Vitamin D] 2,000 unit PO DAILY 12/19/17 [History] Colestipol HCl [Colestid] 2 gm PO DAILY 12/19/17 [History] Lisinopril [Zestril] 20 mg PO DAILY 12/19/17 [History] Omeprazole [PriLOSEC] 20 mg PO BIDAC 12/19/17 [History] Simvastatin [Zocor] 40 mg PO HS 12/19/17 [History] Tiotropium [place] [Spiriva Respimat] 2 puff IH DAILY 12/19/17 [History] Zolpidem [Ambien] 5 mg PO HS 12/19/17 [History] glipiZIDE [Glipizide] 10 mg PO BID 12/19/17 [History] metFORMIN [Glucophage] 850 mg PO TID 12/19/17 [History] Aspirin [Lo-Dose Aspirin EC] 81 mg PO DAILY 01/01/18 [History] Citalopram [CeleXA] 20 mg PO DAILY #30 tablet 03/04/18 [Rx] Cyanocobalamin (B-12) [Vitamin B12] 1,000 mcg IM Q30D 04/22/18 [History] Ferric Carboxymaltose [Injectafer] 750 mg IV Q30D 04/22/18 [History] Pembrolizumab [Keytruda] 1 each IV Q30D 04/22/18 [History] Levothyroxine [Synthroid] 175 mcg PO DAILY #30 tablet 07/22/18 [Rx] Tamsulosin [Flomax] 0.4 mg PO DAILY #30 cap.er.24h 09/02/18 [Rx] Levothyroxine [Synthroid] 100 mcg PO DAILY 10/08/18 [History] Allergies/Adverse Reactions: Allergy/AdvReac Type Severity Reaction Status Date / Time No Known Drug Allergies Allergy See Verified 10/08/18 20:00 Comments Certification: Further, I certify that my clinical findings support that this patient is homebound (i.e. absences from home require considerable and taxing effort and are for medical reasons or mosque services or infrequently or short duration when for other reasons) because: Homebound Reason: Patient requires assistance of a person or device to safely leave home Attestation: My signature below is to certify that this patient is under my care and that I, or nurse practitioner, or a physician's clinical project assistant working with me, has a [id number] encounter with this patient.
[2018-10-09 18:49] VITALS: BP 119/62
[2018-10-09 20:22] LABS: Hematocrit 27.6 % (37.5-50.1); Hemoglobin 8.8 g/dL (12.9-16.9)
== END 2018-10-09 20:51 | disposition home health service (06) ==
LOC: EMEROOARM 19:53 → 3NENU 19:53
PROVIDERS: ADMIT Internal Medicine; ATTEND Internal Medicine

== ENCOUNTER 2018-11-18 16:32 | Inpatient (IN) ==
[2018-11-18 17:49] LABS: Hemoglobin 8.1 g/dL (12.9-16.9); Mean Corpuscular HGB Conc 28.9 g/dL (31.6-35.5)
[2018-11-18 17:50] LABS: Mean Corpuscular Volume 89.7 fL (83.0-100.0); Mean Platelet Volume 10.1 fL (9.4-12.4); Platelet Count 375 K/mcL (140-400); Red Blood Count 3.12 M/mcL (4.19-5.50); White Blood Count 13.6 K/mcL (4.3-11.1)
[2018-11-18 17:59] LABS: INR 1.2; Prothrombin Time 13.3 Seconds (9.4-12.1)
[2018-11-18 18:01] LABS: Activated Partial Thrombo Time 30.9 Seconds (26.0-36.0)
[2018-11-18 18:21] LABS: BUN/Creatinine Ratio 24 (6-26); Blood Urea Nitrogen 21 mg/dL (8-23); Carbon Dioxide 23 mEq/L (23-29); Chloride 105 mEq/L (98-107); Ethanol < 10 mg/dL (Less than 10); Glucose 107 mg/dL (70-105); Osmolality,Calculated 287 (280-300); Potassium 3.9 mEq/L (3.5-5.1); Sodium 137 mEq/L (136-145); Troponin I 0.03 ng/mL (< 0.04); eGFR For African Americans > 60 (> 60); eGFR For Non-African Americans > 60 (> 60)
[2018-11-18] MEDS ORDERED: Isovue-370 500 ML BOTTLE IVP ONE (18:53)
[2018-11-18] MEDS ORDERED: cefTRIAXone 1,000 MG in Water for inj. (sterile) 20 ML 10 ML IVP ONE (22:26)
[2018-11-18] MEDS ORDERED: Azithromycin 500 MG in D5% in Water 250 ML IVPB ONE (22:26)
--- NOTE | 2018-11-18 23:10 | Emergency Department Note ---
Disposition Clinical Impression: Pneumonia, Hypoxia Disposition: Admitted As Inpatient Condition: Good [facility]errals: [facility] [Primary Care Provider] - Forms: ED Satisfaction Letter General Adult HPI - General Chief complaint: ED Neuro Symptoms/Deficit Stated complaint: neuro Time Seen by Provider: 11/18/18 16:36 - History of Present Illness HPI Narrative: Patient 73-year-old Col[place] presents to emergency department with chief complaint of shortness of breath. Patient initially presented being left out for in the emergency department with weakness on the left side. And additional questioning with the arrived and was found that this is a chronic type issue. The real primary complaint was that the patient has been short of breath over the last several days and has had difficulty breathing and is also having low oxygen sats at home. Patient family reports that his room air saturation was in the 80s at home prior to arrival. The patient has prior history of esophageal cancer and has had difficulty tolerating by mouth intake Pain Scale: 0 - Related Data Home Medications Medication Instructions Recorded Confirmed Albuterol Sulfate [Albuterol 2 puff IH Q4HR PRN 12/19/17 11/18/18 Inhaler] Ascorbic Acid [Vitamin C] 250 mg PO BID 12/19/17 11/18/18 Cholecalciferol (D-3) [Vitamin D] 2,000 unit PO DAILY 12/19/17 11/18/18 Colestipol HCl [Colestid] 2 gm PO DAILY 12/19/17 11/18/18 Lisinopril [Zestril] 20 mg PO DAILY 12/19/17 11/18/18 Omeprazole [PriLOSEC] 20 mg PO BIDAC 12/19/17 11/18/18 Simvastatin [Zocor] 40 mg PO HS 12/19/17 11/18/18 Tiotropium [place] [Spiriva 2 puff IH DAILY 12/19/17 11/18/18 Respimat] Zolpidem [Ambien] 5 mg PO HS 12/19/17 11/18/18 glipiZIDE [Glipizide] 10 mg PO BID 12/19/17 11/18/18 metFORMIN [Glucophage] 850 mg PO TID 12/19/17 11/18/18 Aspirin [Lo-Dose Aspirin EC] 81 mg PO DAILY 01/01/18 11/18/18 Cyanocobalamin (B-12) [Vitamin B12] 1,000 mcg IM Q30D 04/22/18 11/18/18 Ferric Carboxymaltose [Injectafer] 750 mg IV Q30D 04/22/18 11/18/18 Pembrolizumab [Keytruda] 1 each IV Q30D 04/22/18 11/18/18 Levothyroxine [Synthroid] 100 mcg PO DAILY 10/08/18 11/18/18 Previous Rx's Medication Instructions Recorded Citalopram [CeleXA] 20 mg PO DAILY #30 tablet 03/04/18 Levothyroxine [Synthroid] 175 mcg PO DAILY #30 tablet 07/22/18 Levothyroxine Sodium [Synthroid] 200 mcg PO DAILY #30 tablet 10/18/18 Nicotine Patch [Nicoderm] 21 mg TD DAILY #30 patch.[id number] 11/04/18 Tamsulosin [Flomax] 0.4 mg PO DAILY #30 cap.er.24h 11/05/18 Allergies Allergy/AdvReac Type Severity Reaction Status Date / Time No Known Drug Allergies Allergy See Verified 11/18/18 21:39 Comments All systems ED: reviewed and negative except as stated. Past Medical History - Past Medical History Attestation: Yes The following information was validated with the patient. Medical history: Reports: aortic aneurysm, cancer, COPD, CVA, diabetes, hyperlipidemia, hypertension, other Surgical history: Reports: other Psychiatric history: Reports: no psych history - Social History Smoking Status: Current every day smoker Smokeless Tobacco Status: No Alcohol use: Reports: none Drug use: Reports: none Physical Exam General: Conversant and pleasant interactive and nontoxic. Head: Normocephalic/atraumatic Eyes:PERRLA, EOMI, no conjunctivitis Nares: Without d/c. Ears: No erythema or d/c noted. 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 Cardovascular: regular rate and rhythm without murmur, brisk capillary refill, no peripheral edema. Lungs: Clear to ascultation bilaterally, non-labored Abd: Soft nontender, Non Distended, no guarding, no rebound. : Defered Extremities: Decreased strength in the left upper and left lower extremity with drift present Neuro: AOx3, left-sided motor weakness in the upper and lower extremities Psych: Normal Affect Derm: No rash noted - General General appearance: alert Course Vital Signs O2 Sat by Pulse Oximetry 92 11/18/18 16:36 Temperature 98.5 F 11/18/18 16:42 Pulse Rate 71 11/18/18 21:43 Respiratory Rate 20 11/18/18 21:43 Blood Pressure 101/62 11/18/18 21:43 O2 Sat by Pulse Oximetry 92 11/18/18 21:43 Oxygen Delivery Oxygen Delivery Room Air Medical Decision Making - MDM Narrative Medical decision making narrative: The patient has pneumonia it was discussed with the patient whether inpatient or outpatient therapy would be sent beneficial. The patient initially was able to tolerate being off oxygen but upon observation off oxygen the patient's proceeded to have desaturations to 88% due to the oxygen requirement at this time I am case was discussed with the hospitalist the patient will be accepted to the hospital. - Lab Data Result diagrams: 11/18/18 17:40 11/18/18 17:40 Lab Results 11/18/18 11/18/18 11/18/18 Range/Units 17:40 17:40 17:40 WBC 13.6 H (4.3-11.1) K/mcL RBC 3.12 L (4.19-5.50) M/mcL Hgb 8.1 L (12.9-16.9) g/dL Hct 28.0 L (37.5-50.1) % MCV 89.7 (83.0-100.0) fL MCH 26.0 L (28.0-33.3) pg MCHC 28.9 L (31.6-35.5) g/dL RDW 21.0 H (11.5-14.5) % Plt Count 375 (140-400) K/mcL MPV 10.1 (9.4-12.4) fL PT 13.3 H (9.4-12.1) Seconds INR 1.2 APTT 30.9 (26.0-36.0) Seconds Sodium 137 (136-145) mEq/L Potassium 3.9 (3.5-5.1) mEq/L Chloride 105 (98-107) mEq/L Carbon Dioxide 23 (23-29) mEq/L BUN 21 (8-23) mg/dL Creatinine 0.87 (0.70-1.30) mg/dL Est GFR ( Amer) > 60 (> 60) Est GFR (Non-Af Amer) > 60 (> 60) BUN/Creatinine Ratio 24 (6-26) Glucose 107 H (70-105) mg/dL Calculated Osmolality 287 (280-300) Lactic Acid (0.5-2.2) mmol/L Calcium 9.0 (8.6-10.3) mg/dL Troponin I 0.03 (< 0.04) ng/mL Ethyl Alcohol < 10 (Less than 10) mg/dL 11/18/18 Range/Units 17:40 WBC (4.3-11.1) K/mcL RBC (4.19-5.50) M/mcL Hgb (12.9-16.9) g/dL Hct (37.5-50.1) % MCV (83.0-100.0) fL MCH (28.0-33.3) pg MCHC (31.6-35.5) g/dL RDW (11.5-14.5) % Plt Count (140-400) K/mcL MPV (9.4-12.4) fL PT (9.4-12.1) Seconds INR APTT (26.0-36.0) Seconds Sodium (136-145) mEq/L Potassium (3.5-5.1) mEq/L Chloride (98-107) mEq/L Carbon Dioxide (23-29) mEq/L BUN (8-23) mg/dL Creatinine (0.70-1.30) mg/dL Est GFR ( Amer) (> 60) Est GFR (Non-Af Amer) (> 60) BUN/Creatinine Ratio (6-26) Glucose (70-105) mg/dL Calculated Osmolality (280-300) Lactic Acid 1.4 (0.5-2.2) mmol/L Calcium (8.6-10.3) mg/dL Troponin I (< 0.04) ng/mL Ethyl Alcohol (Less than 10) mg/dL
--- NOTE | 2018-11-18 23:43 | Internal Med History&Physical ---
Date of Encounter: 11/18/18 Time of Encounter: 23:30 Internal Medicine - H&P: HPI Chief complaint: Hypoxia at home, generalized weakness, cough Admitted From: Emergency Dept Plans for Post Hospital Care: Home History of present illness: Mr. Abbott is a 73 year old male patient with history of esophageal cancer, COPD, diabetes, hypertension and hyperlipidemia who was being evaluated by home health today and was noted to be hypoxic. Patient has also been having increased cough and shortness of breath over the past week. There was also concern for weakness of the left side but this is chronic for the patient. He apparently had room air sats in the 80s prior to presentation here. He has not had any fevers or chills. No nausea or vomiting. He does have a port in his right upper chest wall. Patient also has chronic anemia and he was told that his hemoglobin was around 6 this morning. He does receive blood transfusions and his last transfusion was around 11/04. In the ER here, he was placed on oxygen and is feeling a little bit better. Past Med Surg Social Fam HX - Past Medical History Attestation: Yes The following information was validated with the patient. Source: patient Medical history: aortic aneurysm, cancer, COPD, CVA, diabetes, hyperlipidemia, hypertension, other Additional medical history: SMOKER Psychiatric history: no psych history - Past Surgical History Surgical History: other Additional surgical history: egd, colonoscopy - Social History Smoking Status: Current every day smoker Smokeless Tobacco Status: No Alcohol use: none Drug use: none Internal Medicine - H&P: Meds Albuterol Sulfate [Albuterol Inhaler] 2 puff IH Q4HR PRN 12/19/17 [History] Ascorbic Acid [Vitamin C] 250 mg PO BID 12/19/17 [History] Cholecalciferol (D-3) [Vitamin D] 2,000 unit PO DAILY 12/19/17 [History] Colestipol HCl [Colestid] 2 gm PO DAILY 12/19/17 [History] Lisinopril [Zestril] 20 mg PO DAILY 12/19/17 [History] Omeprazole [PriLOSEC] 20 mg PO BIDAC 12/19/17 [History] Simvastatin [Zocor] 40 mg PO HS 12/19/17 [History] Tiotropium [place] [Spiriva Respimat] 2 puff IH DAILY 12/19/17 [History] Zolpidem [Ambien] 5 mg PO HS 12/19/17 [History] glipiZIDE [Glipizide] 10 mg PO BID 12/19/17 [History] metFORMIN [Glucophage] 850 mg PO TID 12/19/17 [History] Aspirin [Lo-Dose Aspirin EC] 81 mg PO DAILY 01/01/18 [History] Citalopram [CeleXA] 20 mg PO DAILY #30 tablet 03/04/18 [Rx] Cyanocobalamin (B-12) [Vitamin B12] 1,000 mcg IM Q30D 04/22/18 [History] Ferric Carboxymaltose [Injectafer] 750 mg IV Q30D 04/22/18 [History] Pembrolizumab [Keytruda] 1 each IV Q30D 04/22/18 [History] Levothyroxine [Synthroid] 175 mcg PO DAILY #30 tablet 07/22/18 [Rx] Levothyroxine [Synthroid] 100 mcg PO DAILY 10/08/18 [History] Levothyroxine Sodium [Synthroid] 200 mcg PO DAILY #30 tablet 10/18/18 [Rx] Nicotine Patch [Nicoderm] 21 mg TD DAILY #30 patch.td24 11/04/18 [Rx] Tamsulosin [Flomax] 0.4 mg PO DAILY #30 cap.er.24h 11/05/18 [Rx] Allergy/AdvReac Type Severity Reaction Status Date / Time No Known Drug Allergies Allergy See Verified 11/18/18 21:39 Comments All Systems PM: A 10-system review of systems was performed and is negative for pertinent findings except as documented above in the HPI. - Constitutional Constitutional: anorexia, fatigue, malaise, weight loss, no chills, no fever(s), no night sweats - EENT Eyes: no change in vision, no discharge, no pain, no photophobia Ears: no ear discharge, no ear pain, no tinnitus Nose, mouth and throat: no dysphagia, no nasal discharge, no neck pain, no sore throat - Cardiovascular Cardiovascular ROS IM: no chest pain, no diaphoresis, no dyspnea, no lightheadedness, no palpitations, no syncope - Respiratory Respiratory: cough, dyspnea, no wheezing, no excessive phlegm production - Gastrointestinal Gastrointestinal: no abdominal pain, no diarrhea, no hematemesis, no hematochezia, no melena, no nausea, no vomiting - Musculoskeletal Musculoskeletal ROS IM: no numbness, no tingling - Integumentary Integumentary IM: no rash, no unusual bruising - Neurological Neurological ROS: focal weakness (Chronic left-sided weakness), no confusion, no convulsions, no numbness, no tingling, no tremor(s) - Hematologic/Lymphatic Hematologic/Lymphatic: no easy bruising - Constitutional Vitals: Temp Pulse Resp BP Pulse Ox 98.5 F 71 20 101/62 92 11/18/18 16:42 11/18/18 21:43 11/18/18 21:43 11/18/18 21:43 11/18/18 21:43 Exam: General: Patient is alert, moderate distress, oriented x 3, cachectic Head: atraumatic, normocephalic, ENT: Mucous membranes dry Eye: normal appearance, PERRL, no scleral icterus, no conjunctival injection Neck: normal inspection, trachea midline, full ROM, no carotid bruits Chest: normal inspection, symmetric chest rise Respiratory: Coarse breath sounds bilaterally with prolonged expiratory phase and end expiratory wheezing Cardiovascular: Regular rate and rhythm. s1 and s2 normal No clicks, rubs, gallops, or murmurs. No pedal edema Abdomen: Abdomen is soft, nontender. Bowel sounds are present Musculoskeletal: Spontaneously moving all extremities Skin: warm, dry, intact. Neuro: Alert oriented x 3 normal cranial nerves, strength decreased on the left upper and lower extremities. Psych: Normal affect Internal Med - H&P Results - Labs CBC & Chem 7: 11/18/18 17:40 11/18/18 17:40 Labs: Short CBC 11/18/18 Range/Units 17:40 WBC 13.6 H (4.3-11.1) K/mcL Hgb 8.1 L (12.9-16.9) g/dL Hct 28.0 L (37.5-50.1) % Plt Count 375 (140-400) K/mcL BMP 11/18/18 17:40 Sodium 137 Potassium 3.9 Chloride 105 Carbon Dioxide 23 BUN 21 Creatinine 0.87 Glucose 107 H Calcium 9.0 Cardiac Enzymes 11/18/18 Range/Units 17:40 Troponin I 0.03 (< 0.04) ng/mL - Impressions ITS Impressions Chest X-Ray 11/18/18 16:37 IMPRESSION: Reticulonodular opacities to the right lung with right lower lung zone predominance, new since prior CT chest 07/20/2018. Findings could reflect infectious/inflammatory process. Lymphangitic spread of tumor also a consideration. Clinical correlation and continued follow-up suggested. D/ / 11/18/2018 17:02:54 Sherif Juárez MD / nicolas Interpreting Provider: Sherif Juárez MD Head CT 11/18/18 16:38 IMPRESSION: No acute intracranial abnormality. Chronic small-vessel white matter ischemic changes. Remote left basal ganglia lacunar infarct. D/ / Carl Cifuentes MD / Carl Cifuentes MD Interpreting Provider: Carl Cifuentes MD Chest CTA 11/18/18 18:53 IMPRESSION: 1. No evidence of pulmonary embolic disease. 2. Bilateral lower lobe infiltrates, right greater than left. Fine reticulonodular interstitial changes throughout the remainder of the lungs. An infectious or inflammatory pneumonitis is favored. Given the history of malignancy, lymphangitic tumor cannot be excluded. 3. Atherosclerotic changes in the aorta and coronary circulation. Partially visualized abdominal aortic aneurysm at 3.3 cm maximally. See recent CT of the abdomen for complete evaluation. 4. Increased size of right middle lobe and lingular nodules concerning for metastatic disease as noted on recent CT of the abdomen. D/ / 11/18/2018 20:54:52 Carl Cifuentes MD / [email or web address] Interpreting Provider: Carl Cifuentes MD - Assessment and Plan (1) Pneumonia Current Visit: Yes Status: Suspected Assessment and plan: Bilateral lower lobe pneumonia. Per CT. Patient does have elevated WBC count. He has a history of adenocarcinoma of the GE junction. Will check MRSA screen. Continue ceftriaxone and azithromycin for now. Qualifiers: Pneumonia type: due to Pneumococcus Laterality: bilateral Lung location: lower lobe of lung Qualified Code(s): J13 - Pneumonia due to Streptococcus pneumoniae (2) Hypoxia Current Visit: Yes Status: Acute Assessment and plan: Patient was hypoxic on room air prior to arrival. We will continue O2 supplementation. Treat underlying conditions. Prior to discharge she will need evaluation for home oxygen. (3) Anemia of chronic disease Current Visit: Yes Status: Chronic Assessment and plan: Due to neoplastic disease. Hemoglobin 8.1 today. No indication for blood transfusion. We will monitor blood counts closely. (4) Gastric adenocarcinoma Current Visit: Yes Status: Chronic Assessment and plan: Adenocarcinoma of the GE junction. Chemotherapy and radiation had been held in between due to patient's intolerance with persistent diarrhea and severe anemia. No further treatment planned at this time and patient has had persistent disease after concurrent chemoradiation. Poor prognosis overall. Patient wish es to be DNR/DNI. (5) COPD (chronic obstructive pulmonary disease) Current Visit: Yes Status: Chronic Assessment and plan: History of COPD. Will place patient on bronchodilators. O2 supplementation. Qualifiers: COPD type: unspecified COPD Qualified Code(s): J44.9 - Chronic obstructive pulmonary disease, unspecified (6) DVT prophylaxis Current Visit: Yes Status: Acute Assessment and plan: With SCDs alone due to anemia (7) Diabetes mellitus, type 2 Current Visit: Yes Status: Chronic Assessment and plan: Monitor blood sugars. Diabetic diet. Sliding scale insulin. Qualifiers: Diabetes mellitus long-term insulin use: without long-term use Diabetes mellitus complication status: without complication Qualified Code(s): E11.9 - Type 2 diabetes mellitus without complications (8) Essential hypertension Current Visit: Yes Status: Chronic Assessment and plan: Blood pressure low normal at this time. We will hold antihypertensives. Gentle IV hydration. - Time Spent With Patient Total time spent is greater than 50% in coordination of care (as documented) at patient's floor/unit and/or counseling patient:
[2018-11-19] MEDS ORDERED: Naloxone 0.4 MG/ML INJ IVP PRN (00:37)
[2018-11-19] MEDS ORDERED: Acetaminophen 325 MG TABLET PO PRN (00:37)
[2018-11-19] MEDS ORDERED: *HR* OxyCODONE Immed Rel 5 MG TABLET PO PRN (00:37)
[2018-11-19] MEDS ORDERED: *HR* HYDROcodone/Acet 5/325 mg TABLET PO PRN (00:37)
[2018-11-19] MEDS ORDERED: *HR* Promethazine 25 MG/ML VIAL IVP PRN (00:37)
[2018-11-19] MEDS ORDERED: Ringers Solution, Lactated 1,000 ML IVC SCH (00:45)
[2018-11-19 01:59] LABS: Basophils % 0.1 %; Eosinophils % 0.8 %; Hemoglobin 7.3 g/dL (12.9-16.9); Monocytes % 6.1 %; Segmented Neutrophils % 89.1 %
[2018-11-19 02:00] LABS: Eosinophils # 0.1 K/mcL (0.0-0.6); Hematocrit 25.1 % (37.5-50.1); Immature Granulocytes % 0.6 % (0-4); Lymphocytes # 0.4 K/mcL (0.6-4.6); Lymphocytes % 3.3 %; Mean Corpuscular HGB Conc 29.1 g/dL (31.6-35.5); Mean Corpuscular Hemoglobin 25.8 pg (28.0-33.3); Mean Corpuscular Volume 88.7 fL (83.0-100.0); Mean Platelet Volume 11.4 fL (9.4-12.4); Monocytes # 0.8 K/mcL (0.0-1.3); Platelet Count 306 K/mcL (140-400); Red Blood Count 2.83 M/mcL (4.19-5.50); Red Cell Distribution Width 20.9 % (11.5-14.5); White Blood Count 13.2 K/mcL (4.3-11.1)
[2018-11-19 02:13] LABS: Neutrophils # 11.8 K/mcL (1.6-8.9)
[2018-11-19 02:16] LABS: BUN/Creatinine Ratio 24 (6-26); Blood Urea Nitrogen 21 mg/dL (8-23); Calcium 8.3 mg/dL (8.6-10.3); Carbon Dioxide 23 mEq/L (23-29); Chloride 105 mEq/L (98-107); Glucose 112 mg/dL (70-105); Osmolality,Calculated 288 (280-300); Potassium 3.8 mEq/L (3.5-5.1); Sodium 137 mEq/L (136-145); eGFR For African Americans > 60 (> 60); eGFR For Non-African Americans > 60 (> 60)
[2018-11-19 03:46] LABS: Platelet Estimate Normal (Normal)
[2018-11-19 03:49] LABS: Anisocytosis 1+ (Not Present); Hypochromasia Present (Not Present)
[2018-11-19] MEDS: Lisinopril 20 MG TABLET PO SCH (08:46)
[2018-11-19] MEDS: Aspirin Enteric Coated 81 MG Tablet PO SCH (08:47)
[2018-11-19] MEDS: Nicotine 21 MG PATCH.TD24 TD SCH (08:47)
[2018-11-19] MEDS: cefTRIAXone 1,000 MG in Water for inj. (sterile) 20 ML 10 ML IVP SCH (08:48)
[2018-11-19] MEDS: (Colestipol Hcl [Colestid] 2 GM) PO SCH (08:48)
[2018-11-19] MEDS ORDERED: NON-FORMULARY MEDICATION 1 EACH EACH (Tiotropium Bromide [Spiriva Respimat] 2 PUFF) IH SCH (09:00)
--- NOTE | 2018-11-19 11:52 | Internal Med Progress Note ---
Hospitalist Progress Note - Encounter Date of Encounter: 11/19/18 Time of Encounter: 11:50 - Subjective Interval History: Patient was seen and examined at bedside states that he can breathe better than when he first came into the hospital. States that he does have a poor appetite and has been feeling weak at home - Exam Vitals: Temp Pulse Resp BP Pulse Ox 98.2 F 74 15 94/58 93 11/19/18 11:24 11/19/18 11:24 11/19/18 11:24 11/19/18 11:24 11/19/18 11:24 Exam: General: Patient is alert, oriented x 3, cachectic Head: atraumatic, normocephalic, ENT: Mucous membranes dry Eye: normal appearance, PERRL, no scleral icterus, no conjunctival injection Neck: normal inspection, trachea midline, full ROM, no carotid bruits Chest: normal inspection, symmetric chest rise Respiratory: breath sounds clear bilaterally with prolonged expiratory phase and end expiratory wheezing Cardiovascular: Regular rate and rhythm. s1 and s2 normal No clicks, rubs, gallops, or murmurs. No pedal edema Abdomen: Abdomen is soft, nontender. Bowel sounds are present Musculoskeletal: Spontaneously moving all extremities Skin: warm, dry, intact. Neuro: Alert oriented x 3 normal cranial nerves, strength decreased on the left upper and lower extremities. Psych: Normal affect - Assessment and Plan (1) COPD (chronic obstructive pulmonary disease) Current Visit: Yes Status: Chronic Assessment and Plan: History of COPD. Will place patient on bronchodilators. O2 supplementation. 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 Chemotherapy and radiation had been held in between due to patient's intolerance with persistent diarrhea and severe anemia. No further treatment planned at this time and patient has had persistent disease after concurrent chemoradiation. Poor prognosis overall. Patient wishes to be DNR/DNI. - per oncology notes -Not a surgical candidate at this moment. Not a candidate for further radiation per Dr. Bryan -On Keytruda (pembrolizumab) every 3 weeks next treatment scheduled for next (4) Anemia of chronic disease Current Visit: Yes Status: Chronic Assessment and Plan: Due to neoplastic disease. Hemoglobin 7.3 today. No indication for blood transfusion. We will monitor blood counts closely. He did receive 2 units PRBCs on 11/04/18 On IV njectafer 750 mg every 4-6 weeks. Last dose 11/04/2018 (5) Pneumonia Current Visit: Yes Status: Suspected Assessment and Plan: Bilateral lower lobe pneumonia. Per CT. Patient does have elevated WBC count. He has a history of adenocarcinoma of the GE junction. MRSA screen negative. Continue ceftriaxone and azithromycin for now. Requiring oxygen supplementation at this time 2 L nasal cannula Continue bronchodilators Check sputum (6) Hypoxia Current Visit: Yes Status: Acute Assessment and Plan: Patient was hypoxic on room air prior to arrival. We will continue O2 supplementation. Treat underlying conditions. Prior to discharge she will need evaluation for home oxygen. (7) Diabetes mellitus, type 2 Current Visit: Yes Status: Chronic Assessment and Plan: Accu-Cheks before meals at bedtime with sliding scale insulin (8) Essential hypertension Current Visit: Yes Status: Chronic Assessment and Plan: Blood pressure low normal at this time. We will hold antihypertensives. Gentle IV hydration. - Time Spent with Patient Total time spent is greater than 50% in coordination of care (as documented) at patient's floor/unit and/or counseling patient: Internal Medicine: Result - Labs CBC & Chem 7: 11/19/18 01:18 11/19/18 01:18 Labs: Short CBC 11/18/18 11/19/18 Range/Units 17:40 01:18 WBC 13.6 H 13.2 H (4.3-11.1) K/mcL Hgb 8.1 L 7.3 L (12.9-16.9) g/dL Hct 28.0 L 25.1 L (37.5-50.1) % Plt Count 375 306 (140-400) K/mcL Neutrophils # 11.8 H (1.6-8.9) K/mcL BMP 11/18/18 11/19/18 17:40 01:18 Sodium 137 137 Potassium 3.9 3.8 Chloride 105 105 Carbon Dioxide 23 23 BUN 21 21 Creatinine 0.87 0.88 Glucose 107 H 112 H Calcium 9.0 8.3 L Cardiac Enzymes 11/18/18 Range/Units 17:40 Troponin I 0.03 (< 0.04) ng/mL - ABG Interpretation ABG results: PT/INR, D-dimer PT 13.3 Seconds (9.4-12.1) H 11/18/18 17:40 - Impressions Impressions Chest X-Ray 11/18/18 16:37 IMPRESSION: Reticulonodular opacities to the right lung with right lower lung zone predominance, new since prior CT chest 07/20/2018. Findings could reflect infectious/inflammatory process. Lymphangitic spread of tumor also a consideration. Clinical correlation and continued follow-up suggested. D/ / 11/18/2018 17:02:54 Sherif Juárez MD / nicolas Interpreting Provider: Sherif Juárez MD Head CT 11/18/18 16:38 IMPRESSION: No acute intracranial abnormality. Chronic small-vessel white matter ischemic changes. Remote left basal ganglia lacunar infarct. D/ / Carl Cifuentes MD / Carl Cifuentes MD Interpreting Provider: Carl Cifuentes MD Chest CTA 11/18/18 18:53 IMPRESSION: 1. No evidence of pulmonary embolic disease. 2. Bilateral lower lobe infiltrates, right greater than left. Fine reticulonodular interstitial changes throughout the remainder of the lungs. An infectious or inflammatory pneumonitis is favored. Given the history of malignancy, lymphangitic tumor cannot be excluded. 3. Atherosclerotic changes in the aorta and coronary circulation. Partially visualized abdominal aortic aneurysm at 3.3 cm maximally. See recent CT of the abdomen for complete evaluation. 4. Increased size of right middle lobe and lingular nodules concerning for metastatic disease as noted on recent CT of the abdomen. D/ / 11/18/2018 20:54:52 Carl Cifuentes MD / mirna Interpreting Provider: Carl Cifuentes MD Consult Discharge Plan - Plan [facility]: [facility] [Primary Care Provider[facility] - (1) COPD (chronic obstructive pulmonary disease) Qualifiers: COPD type: unspecified COPD Qualified Code(s): J44.9 - Chronic obstructive pulmonary disease, unspecified (5) Pneumonia Qualifiers: Pneumonia type: due to Pneumococcus Laterality: bilateral Lung location: lower lobe of lung Qualified Code(s): J13 - Pneumonia due to Streptococcus pneumoniae (7) Diabetes mellitus, type 2 Qualifiers: Diabetes mellitus detention insulin use: without detention use Diabetes mellitus complication status: without complication Qualified Code(s): E11.9 - Type 2 diabetes mellitus without complications
--- NOTE | 2018-11-19 18:00 | Oncology Inp Consult Note ---
Date of Encounter: 11/19/18 Time of Encounter: 17:57 Assessment and Plan (1) Pneumonia Status: Acute Assessment and plan: Bilateral lower lobe infiltrate. Continue to smoke. Currently on Rocephin Qualifiers: Qualified Code(s): J18.9 - Pneumonia, unspecified organism (2) Gastric adenocarcinoma Status: Chronic Assessment and plan: He had stable disease on Pembrolizumab. Currently he has progression of disease as evidenced by CT angiogram chest 11/19/2018. Lung nodules have increased in the right middle lobe to 7 mm. He also has some progression in the abdomen. Continue to bleed from gastric tumor. He and his are not interested in aggressive measures. He has significant deconditioning Had a long discussion with him. Overall prognosis poor. Goals of care to discussed. If they chose hospice would be a good decision is well. Currently getting home visiting nurses to help him. He is from [facility]. If he desires inpatient hospice then [facility] may be able to provide that. We will place a consult for social service. - Data of Consult Patient: known to practice within the last 3 years Requesting Physician: Erica Maria MD Primary Care Provider: [facility] - Consult Narrative Reason for consult: Metastatic gastric cancer History of present illness: Hospitalized with pneumonia shortness of breath and deconditioning. CT angiogram chest 11/19/2018 showed bilateral lower lobe infiltrate. Also in enlarging lung nodules right middle and lower lobe currently 6 mm and 4 mm concerning for metastasis Continue to smoke. Deconditioned. Has recurrent anemia from tumor bleeding from the stomach Oncological history Gastric adenocarcinoma. Most likely arising from the GE junction extending into the stomach He has persistent disease after concurrent chemoradiation as mentioned Not a surgical candidate at this moment. Second line treatment Pembrolizumab 200 mg IV day 1 every 3 weeks since 05/21/2017 Not a candidate for further radiation per Dr. Bryan in 04/22/2018 Not a candidate for further surgical intervention at this time Surgical opinion at [facility], patient and are not interested this time. She states she had spoken to [facility] by phone and stated they had nothing more to offer, and they are not willing to travel. Overall prognosis poor. CT scans chest, abdomen and pelvis on 07/20/18 shows stable gastric mass, no new metastatic disease. Stable nodule in the lingula 7 mm. He also gets frequent packed RBC transfusion because of bleeding from is gastric mass. EGD 12/17/2017 showed bleeding gastric cancer post argon photocoagulation Another EGD 04/07/2018 showed partially obstructing mass gastroesophageal junction monopolar probe cauterization done In spite of above measures he continued to bleed. Past Med Surg Social Fam HX - Past Medical History Medical history: aortic aneurysm, cancer, COPD, CVA, diabetes, hyperlipidemia, hypertension, other Additional medical history: SMOKER Psychiatric history: no psych history - Past Surgical History Surgical History: other Additional surgical history: egd, colonoscopy - Social History Smoking Status: Current every day smoker Smokeless Tobacco Status: No Alcohol use: none Drug use: none - Family History Mother Hx Family Cardiac Disorders: Yes (MD) Medications and Allergies Albuterol Sulfate [Albuterol Inhaler] 2 puff IH Q4HR PRN 12/19/17 [History] Ascorbic Acid [Vitamin C] 250 mg PO BID 12/19/17 [History] Cholecalciferol (D-3) [Vitamin D] 2,000 unit PO DAILY 12/19/17 [History] Colestipol HCl [Colestid] 2 gm PO DAILY 12/19/17 [History] Lisinopril [Zestril] 20 mg PO DAILY 12/19/17 [History] Omeprazole [PriLOSEC] 20 mg PO BIDAC 12/19/17 [History] Simvastatin [Zocor] 40 mg PO HS 12/19/17 [History] Tiotropium [place] [Spiriva Respimat] 2 puff IH DAILY 12/19/17 [History] Zolpidem [Ambien] 5 mg PO HS 12/19/17 [History] glipiZIDE [Glipizide] 10 mg PO BID 12/19/17 [History] metFORMIN [Glucophage] 850 mg PO TID 12/19/17 [History] Aspirin [Lo-Dose Aspirin EC] 81 mg PO DAILY 01/01/18 [History] Citalopram [CeleXA] 20 mg PO DAILY #30 tablet 03/04/18 [Rx] Cyanocobalamin (B-12) [Vitamin B12] 1,000 mcg IM Q30D 04/22/18 [History] Ferric Carboxymaltose [Injectafer] 750 mg IV Q30D 04/22/18 [History] Pembrolizumab [Keytruda] 1 each IV Q30D 04/22/18 [History] Levothyroxine Sodium [Synthroid] 200 mcg PO DAILY #30 tablet 10/18/18 [Rx] Nicotine Patch [Nicoderm] 21 mg TD DAILY #30 patch.td24 11/04/18 [Rx] Tamsulosin [Flomax] 0.4 mg PO DAILY #30 cap.er.24h 11/05/18 [Rx] Allergy/AdvReac Type Severity Reaction Status Date / Time No Known Drug Allergies Allergy See Verified 11/19/18 11:59 Comments Review of systems: Significant deconditioning. Poor appetite some nausea. Continued bleeding from stomach and anemia. Current hemoglobin 7.3. No focal neurological deficit but generalized weakness. Shortness of breath with exertion. No major chest pain. No skin lesion or rashes. Oncology - Exam - Constitutional Exam: GENERAL: Alert and oriented, fatigued Mental Status: Affect appropriate for circumstances HEENT: Sclerae anicteric. No mucositis or thrush. No other oral or pharyngeal lesions or erythema. Skin: No rashes or petechiae. No evidence of skin malignancy Lymph nodes: No cervical, supraclavicular, axillary, or inguinal adenopathy. Lungs: Air entry decreased at bases with some wheezing Cardiovascular: Regular rate and rhythm. No skipped beats Abdomen: Soft, nontender; no organomegaly or masses palpable. Extremities: No edema. No calf swelling or tenderness. No joint deformity. Neurologic: Alert, cranial nerves II-XII intact; normal gait; no focal weakness or sensory abnormalities. Deconditioning Consult Discharge Plan - Plan [facility]errals: [facility] [Primary Care Provider] - Inpatient Charges Provider: Dr. Natalia Arguelles Consult - Inpatient: [id number]
[2018-11-19] MEDS: Azithromycin 500 MG in D5% in Water 250 ML IVPB SCH (21:37)
[2018-11-20 04:07] LABS: Basophils % 0.1 %; Eosinophils % 2.9 %; Hemoglobin 6.4 g/dL (12.9-16.9); Mean Corpuscular Volume 87.7 fL (83.0-100.0); Red Cell Distribution Width 20.8 % (11.5-14.5)
[2018-11-20 04:09] LABS: Eosinophils # 0.2 K/mcL (0.0-0.6); Hematocrit 22.1 % (37.5-50.1); Immature Granulocytes % 0.7 % (0-4); Lymphocytes # 0.5 K/mcL (0.6-4.6); Lymphocytes % 6.6 %; Mean Corpuscular Hemoglobin 25.4 pg (28.0-33.3); Mean Platelet Volume 9.9 fL (9.4-12.4); Monocytes # 0.4 K/mcL (0.0-1.3); Platelet Count 361 K/mcL (140-400); Red Blood Count 2.52 M/mcL (4.19-5.50); Segmented Neutrophils % 83.7 %
[2018-11-20 04:15] LABS: Neutrophils # 5.9 K/mcL (1.6-8.9)
[2018-11-20 04:27] LABS: BUN/Creatinine Ratio 25 (6-26); Blood Urea Nitrogen 19 mg/dL (8-23); Carbon Dioxide 26 mEq/L (23-29); Chloride 103 mEq/L (98-107); Glucose 178 mg/dL (70-105); Osmolality,Calculated 289 (280-300); Potassium 3.5 mEq/L (3.5-5.1); Sodium 136 mEq/L (136-145); eGFR For African Americans > 60 (> 60); eGFR For Non-African Americans > 60 (> 60)
[2018-11-20 04:39] LABS: Hypochromasia Present (Not Present); Platelet Estimate Normal (Normal)
[2018-11-20] MEDS: (Colestipol Hcl [Colestid] 2 GM) PO SCH (07:37)
[2018-11-20] MEDS: Nicotine 21 MG PATCH.TD24 TD SCH ×2 (07:37→19:35)
[2018-11-20] MEDS: Aspirin Enteric Coated 81 MG Tablet PO SCH (07:42)
[2018-11-20] MEDS: Lisinopril 20 MG TABLET PO SCH ×2 (07:43→19:02)
[2018-11-20] MEDS: cefTRIAXone 1,000 MG in Water for inj. (sterile) 20 ML 10 ML IVP SCH (07:44)
--- NOTE | 2018-11-20 11:07 | Palliative - Consult Note ---
Date of Encounter: 11/20/18 Time of Encounter: 10:55 - Assessment and Plan (1) Generalized pain Current Visit: Yes Status: Acute Assessment and plan: Has [place] available PRN. Has not utlized. Monitor (2) Generalized weakness Current Visit: Yes Status: Acute Assessment and plan: PT/OT consult has been ordered, still pending. 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 Arguelles's note reviewed and appreciated. (4) Goals of care, counseling/discussion Current Visit: Yes Status: Acute Assessment and plan: D/W patient at bedside, who deferring most decisions to his Rose. I reached out to her by telephone, as no family present. Patient has 3 daughter, Jessica, Emily, and Chad who all reside in the [facility] and have been assisting in his care. 2 daughters are RN's. states that patient has been getting weaker at home. They have home health that the [place] set up ([facility]) and she has visiting aide 2 hours, 3 days a week. Rose states that patient desires to be home, and had questions regarding if hospice care would provide them more support. Discussed hospice benefits at length, and discussed philosophy of hospice care. However, did state that the goal would be to keep him in his own environment, and likely not return to hospital. Stated that supportive blood transfusions would likely stop as well. Rose desires to discuss the above with pt/family over the weekend. shipping manager from [employer] [facility] as well for information on any other services they can provide. Total time spent in evaluation of patient, discussion, and counseling 45 min.. (5) Severe anemia Current Visit: No Status: Acute Assessment and plan: Still desiring supportive transfusions at this time. Monitor (6) Palliative care encounter Current Visit: Yes Status: Acute Palliative-CN HPI - Data of Consult Consult date: 11/20/18 Requesting Physician: Erica Maria MD [facility] - Consult Narrative History of present illness: Mr. Abbott is a 73 year old male with a history of esophageal cancer who was brought to hospital after he had increasing cough, shortness of breath, and was evaluated by home health and found hypoxic. He was found to have bilateral pneumonia, and has been treated with IV atb/supportive oxygen. Leukocytosis has improved since admission. He has received treatment for his cancer per Dr. Arguelles and Dr. Bryan at [facility]. His functional status has declined, and he is not a candidate for further treatment here. He was offered second opinion at [facility] a while back and declined. states they did speak with [facility] in phone consultation, and they stated they would have nothing to offer. He does get frequent blood transfusions r/t bleeding of gastric mass. Current hgb 6.4. He has had EGD's in past with [facility], but despite cauterization, continues to bleed. He is 2ppd smoker and continues to smoke. He has had decreased oral intake as well. Upon my visit, pt is alert and oriented. Denies any pain, shortness of breath, nausea, anxiety. States feels better than when he arrived. Flat affect. No family in room. Vitals are stable. Will likely be transfused today for anemia. CC: Erica Maria MD - Time Spent with Patient Time: Total time spent is greater than 50% in coordination of care (as documented) at patient's floor/unit and/or counseling patient: Time with patient: 45 minutes Past Med Surg Social Fam HX - Past Medical History Medical history: aortic aneurysm, cancer, COPD, CVA, diabetes, hyperlipidemia, hypertension, other Additional medical history: SMOKER Psychiatric history: no psych history - Past Surgical History Surgical History: other Additional surgical history: egd, colonoscopy - Social History Smoking Status: Current every day smoker Smokeless Tobacco Status: No Alcohol use: none Drug use: none - Family History Mother Hx Family Cardiac Disorders: Yes (MD) Medications and Allergies Albuterol Sulfate [Albuterol Inhaler] 2 puff IH Q4HR PRN 12/19/17 [History] Ascorbic Acid [Vitamin C] 250 mg PO BID 12/19/17 [History] Cholecalciferol (D-3) [Vitamin D] 2,000 unit PO DAILY 12/19/17 [History] Colestipol HCl [Colestid] 2 gm PO DAILY 12/19/17 [History] Lisinopril [Zestril] 20 mg PO DAILY 12/19/17 [History] Omeprazole [PriLOSEC] 20 mg PO BIDAC 12/19/17 [History] Simvastatin [Zocor] 40 mg PO HS 12/19/17 [History] Tiotropium Kaycee [Spiriva Respimat] 2 puff IH DAILY 12/19/17 [History] Zolpidem [Ambien] 5 mg PO HS 12/19/17 [History] glipiZIDE [Glipizide] 10 mg PO BID 12/19/17 [History] metFORMIN [Glucophage] 850 mg PO TID 12/19/17 [History] Aspirin [Lo-Dose Aspirin EC] 81 mg PO DAILY 01/01/18 [History] Citalopram [CeleXA] 20 mg PO DAILY #30 tablet 03/04/18 [Rx] Cyanocobalamin (B-12) [Vitamin B12] 1,000 mcg IM Q30D 04/22/18 [History] Ferric Carboxymaltose [Injectafer] 750 mg IV Q30D 04/22/18 [History] Pembrolizumab [Keytruda] 1 each IV Q30D 04/22/18 [History] Levothyroxine Sodium [Synthroid] 200 mcg PO DAILY #30 tablet 10/18/18 [Rx] Nicotine Patch [Nicoderm] 21 mg TD DAILY #30 patch.td24 11/04/18 [Rx] Tamsulosin [Flomax] 0.4 mg PO DAILY #30 cap.er.24h 11/05/18 [Rx] Allergy/AdvReac Type Severity Reaction Status Date / Time No Known Drug Allergies Allergy See Verified 11/19/18 11:59 Comments All systems: reviewed and no additional remarkable complaints except as stated (generalized weakness) Palliative Care-Exam - Constitutional Vitals: Temp Pulse Resp BP Pulse Ox 97.7 F 67 16 106/62 91 11/20/18 07:22 11/20/18 07:22 11/20/18 07:22 11/20/18 07:22 11/20/18 07:22 General appearance: Present: no acute distress - Head Head Exam: Present: normal inspection, normocephalic - Eye Eye exam: Present: normal appearance, PERRL - Respiratory Respiratory exam: Present: decreased breath sounds, CTAB - Cardiovascular Cardiovascular exam: Present: +S1, +S2 - GI/Abdominal Exam GI/Abdominal exam: Present: normal bowel sounds, soft - Extremities Exam Additional comments: Lower extremities with some purplish discoloration/mottling - Neurological Exam Neurological exam: Present: alert, oriented X3, strengths equal and symetr throughout - Skin Skin exam: Present: dry, pallor, warm Internal Medicine - CN: Reslt - Labs CBC & Chem 7: 11/20/18 02:32 11/20/18 02:32 Labs: Short CBC 11/20/18 Range/Units 02:32 WBC 7.0 (4.3-11.1) K/mcL Hgb 6.4 L (12.9-16.9) g/dL Hct 22.1 L (37.5-50.1) % Plt Count 361 (140-400) K/mcL Neutrophils # 5.9 (1.6-8.9) K/mcL BMP 11/20/18 02:32 Sodium 136 Potassium 3.5 Chloride 103 Carbon Dioxide 26 BUN 19 Creatinine 0.76 Glucose 178 H Calcium 8.0 L - ABG Interpretation ABG results: PT/INR, D-dimer PT 13.3 Seconds (9.4-12.1) H 11/18/18 17:40 Consult Discharge Plan - Plan [facility]errals: [facility] [Primary Care Provider] - Palliative Quality Palliative Quality: Screen for Code Status: Yes, Screen for Goals of Care: Yes, Screen for Pain: Yes, If Pain Regimen Started, Initiate Bowel Regimen: NA, Screen for Nausea/Vomitting: Yes Code Status: 11/19/18 00:22 Resuscitation Status: Active [RES] Routine Comment: Resuscitation Status: [id number]
--- NOTE | 2018-11-20 13:17 | Internal Med Progress Note ---
Hospitalist Progress Note - Encounter Date of Encounter: 11/20/18 Time of Encounter: 13:15 - Subjective Interval History: Since was seen and examined at bedside, currently denies any pain or discomfort he is withdrawing with a flat a fact. I discussed treatment plan with the patient including the palliative care will be and to discuss possible hospice t nikolai. Patient verbalized understanding - Exam Vitals: Temp Pulse Resp BP Pulse Ox 97.9 F 69 16 105/63 94 11/20/18 11:34 11/20/18 11:34 11/20/18 11:34 11/20/18 11:34 11/20/18 11:34 Exam: General: Patient is alert, oriented x 3, cachectic Head: atraumatic, normocephalic, ENT: Mucous membranes dry Eye: normal appearance, PERRL, no scleral icterus, no conjunctival injection Neck: normal inspection, trachea midline, full ROM, no carotid bruits Chest: normal inspection, symmetric chest rise Respiratory: breath sounds clear bilaterally with prolonged expiratory phase and end expiratory wheezing Cardiovascular: Regular rate and rhythm. s1 and s2 normal No clicks, rubs, gallops, or murmurs. No pedal edema Abdomen: Abdomen is soft, nontender. Bowel sounds are present Musculoskeletal: Spontaneously moving all extremities Skin: warm, dry, intact. Neuro: Alert oriented x 3 normal cranial nerves, strength decreased on the left upper and lower extremities. Psych: Normal affect - Assessment and Plan (1) COPD (chronic obstructive pulmonary disease) Current Visit: Yes Status: Chronic Assessment and Plan: History of COPD. Will place patient on bronchodilators. O2 supplementation. 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 Chemotherapy and radiation had been held in between due to patient's intolerance with persistent diarrhea and severe anemia. No further treatment planned at this time and patient has had persistent disease after concurrent chemoradiation. Poor prognosis overall. Patient wishes to be DNR/DNI. - per oncology notes -Not a surgical candidate at this moment. Not a candidate for further radiation per Dr. Bryan -On Keytruda (pembrolizumab) every 3 weeks next treatment scheduled for next -Oncology did see the patient and appreciate recommendations-goals of care have been discussed awaiting palliative recommendations. Oncology's prognosis overall is poor (4) Anemia of chronic disease Current Visit: Yes Status: Chronic Assessment and Plan: Due to neoplastic disease. Hemoglobin 7.3 today. No indication for blood transfusion. We will monitor blood counts closely. He did receive 2 units PRBCs on 11/04/18 On IV njectafer 750 mg every 4-6 weeks. Last dose 11/04/201811/20 Today patient's hemoglobin is 6.4-patient and would like to continue supportive blood transfusions. He will receive 2 units of PRBCs today continue to monitor hemoglobin closely (5) Pneumonia Current Visit: Yes Status: Suspected Assessment and Plan: Bilateral lower lobe pneumonia. Per CT. Patient does have elevated WBC count. He has a history of adenocarcinoma of the GE junction. MRSA screen negative. Continue ceftriaxone and azithromycin for now. Requiring oxygen supplementation at this time 2 L nasal cannula Continue bronchodilators Check sputum Seems to be stable (6) Hypoxia Current Visit: Yes Status: Acute Assessment and Plan: Patient was hypoxic on room air prior to arrival. We will continue O2 supplementation. Treat underlying conditions. Prior to discharge she will need evaluation for home oxygen. (7) Diabetes mellitus, type 2 Current Visit: Yes Status: Chronic Assessment and Plan: Accu-Cheks before meals at bedtime with sliding scale insulin-patient has poor oral intake monitor for hypoglycemia (8) Essential hypertension Current Visit: Yes Status: Chronic Assessment and Plan: Blood pressure low normal at this time. We will hold antihypertensives. (9) Goals of care, counseling/discussion Current Visit: Yes Status: Acute Assessment and Plan: Patient does have a history of gastric adenocarcinoma-disease seems to be progressing despite Pembrolizumab-he is not on chemotherapy or radiation due to intolerance he is not surgical candidate-overall prognosis is poor discussed this case with oncology as well as palliative care. Did speak with patient's and patient they are receptive to hospice and allowing patient to go home with nursing care. However Dorian reports that when she informed the supportive blood transfusions would likely stop and that the goal is to keep him at home and he would not likely return to the hospital. The express that she would like to discuss this with her daughters over the weekend we will revisit discussion on Thursday with palliative in rn case manager hospice who has already reached out to the [place] concerning hospice services. Currently patient has a DNR comfort care arrest DNI (10) Malnutrition Current Visit: Yes Status: Acute Assessment and Plan: 1 patient has gastric adenocarcinoma poor oral intake might states the only thing as chocolate milk pre-albumin is 8.7 dietitian has been consulted for supplement recommendations - Time Spent with Patient Total time spent is greater than 50% in coordination of care (as documented) at patient's floor/unit and/or counseling patient: Internal Medicine: Result - Labs CBC & Chem 7: 11/20/18 02:32 11/20/18 02:32 Labs: Short CBC 11/20/18 Range/Units 02:32 WBC 7.0 (4.3-11.1) K/mcL Hgb 6.4 L (12.9-16.9) g/dL Hct 22.1 L (37.5-50.1) % Plt Count 361 (140-400) K/mcL Neutrophils # 5.9 (1.6-8.9) K/mcL BMP 11/20/18 02:32 Sodium 136 Potassium 3.5 Chloride 103 Carbon Dioxide 26 BUN 19 Creatinine 0.76 Glucose 178 H Calcium 8.0 L - ABG Interpretation ABG results: PT/INR, D-dimer PT 13.3 Seconds (9.4-12.1) H 11/18/18 17:40 Consult Discharge Plan - Plan [facility]errals: [facility] [Primary Care Provider] - (1) COPD (chronic obstructive pulmonary disease) Qualifiers: COPD type: unspecified COPD Qualified Code(s): J44.9 - Chronic obstructive pulmonary disease, unspecified (5) Pneumonia Qualifiers: Pneumonia type: due to Pneumococcus Laterality: bilateral Lung location: lower lobe of lung Qualified Code(s): J13 - Pneumonia due to Streptococcus pneumoniae (7) Diabetes mellitus, type 2 Qualifiers: Diabetes mellitus detention insulin use: without centerless grinder use Diabetes mellitus complication status: without complication Qualified Code(s): E11.9 - Type 2 diabetes mellitus without complications (10) Malnutrition Qualifiers: Malnutrition type: protein-calorie malnutrition Protein-calorie malnutrition severity: unspecified severity Qualified Code(s): E46 - Unspecified protein- calorie malnutrition
[2018-11-20] MEDS ORDERED: ALPRAZolam 0.25 MG TABLET PO PRN (16:15)
[2018-11-20] MEDS ORDERED: 0.9 % Sodium Chloride 250 ML ONE ×2 (16:26→20:57)
[2018-11-20] MEDS ORDERED: ALPRAZolam 0.25 MG TABLET PO ONE (19:32)
[2018-11-20] MEDS: Azithromycin 500 MG in D5% in Water 250 ML IVPB SCH (23:00)
[2018-11-21 04:32] LABS: Basophils % 0.1 %; Eosinophils # 0.3 K/mcL (0.0-0.6); Eosinophils % 3.6 %; Hematocrit 26.6 % (37.5-50.1); Immature Granulocytes % 0.9 % (0-4); Lymphocytes # 0.3 K/mcL (0.6-4.6); Lymphocytes % 4.1 %; Mean Corpuscular HGB Conc 30.8 g/dL (31.6-35.5); Mean Corpuscular Hemoglobin 26.6 pg (28.0-33.3); Mean Corpuscular Volume 86.4 fL (83.0-100.0); Mean Platelet Volume 9.3 fL (9.4-12.4); Monocytes # 0.4 K/mcL (0.0-1.3); Monocytes % 4.9 %; Neutrophils # 6.6 K/mcL (1.6-8.9); Platelet Count 331 K/mcL (140-400); Red Blood Count 3.08 M/mcL (4.19-5.50); Red Cell Distribution Width 18.7 % (11.5-14.5); Segmented Neutrophils % 86.4 %; White Blood Count 7.6 K/mcL (4.3-11.1)
[2018-11-21 04:33] LABS: Hemoglobin 8.2 g/dL (12.9-16.9)
[2018-11-21] MEDS: Nicotine 21 MG PATCH.TD24 TD SCH (07:26)
[2018-11-21] MEDS: (Colestipol Hcl [Colestid] 2 GM) PO SCH (07:29)
[2018-11-21] MEDS: Aspirin Enteric Coated 81 MG Tablet PO SCH (07:29)
[2018-11-21] MEDS: ALPRAZolam 0.5 MG TABLET PO PRN ×2 (07:29→15:18)
[2018-11-21] MEDS: cefTRIAXone 1,000 MG in Water for inj. (sterile) 20 ML 10 ML IVP SCH (07:31)
[2018-11-21] MEDS: Lisinopril 20 MG TABLET PO SCH (07:36)
--- NOTE | 2018-11-21 11:00 | Internal Med Progress Note ---
Hospitalist Progress Note - Encounter Date of Encounter: 11/21/18 Time of Encounter: 10:38 - Subjective Interval History: patient seen and examined at bedside, Had a long discussion with the patient and his concerning prognosis. I discussed that oncology note stated that his prognosis is poor, that it appears that current CT scan of chest does show progression of disease. Lung nodules have increased in the right middle lobe to 7 mm. He also has some progression in the abdomen, despite receiving Keytuda every 3 weeks Continue to bleed from gastric tumor. He is requiring frequent transfusions. Explained as disease progress, he will require more frequent transfusions and more hospital visits. He is not a surgical candidate. Patient verbalizes frequently that he wants to go home. We revisited conversation she had with hospice yesterday that blood transfusions would stop, as well as Keytruda treatments if they go home with hospice, patient states that " I doesn't want to come to hospital anymore I want to go home". Explained that if he wants to go home that we can set up hospice through the [place] , unfortunately it is Thursday and no social workers are available until tomorrow, but they have started working on his case Thursday. offered patient anxiety medication to help with cravings for cigarettes as well as nicotine patch. Encouraged patient to get up to the chair he is severely deconditioned and will be evaluated by PT and OT as well. Advised that he will be evaluated to see if he qualifies for home oxygen. and patient verbalized understanding and states that they will discuss Hospice - Exam Vitals: Temp Pulse Resp BP Pulse Ox 97.9 F 61 18 113/65 91 11/21/18 08:39 11/21/18 08:39 11/21/18 08:39 11/21/18 08:39 11/21/18 08:39 Exam: General: Patient is alert, oriented x 3, cachectic Head: atraumatic, normocephalic, ENT: Mucous membranes dry Eye: normal appearance, PERRL, no scleral icterus, no conjunctival injection Neck: normal inspection, trachea midline, full ROM, no carotid bruits Chest: normal inspection, symmetric chest rise Respiratory: breath sounds clear bilaterally with prolonged expiratory phase and end expiratory wheezing Cardiovascular: Regular rate and rhythm. s1 and s2 normal No clicks, rubs, g allops, or murmurs. No pedal edema Abdomen: Abdomen is soft, nontender. Bowel sounds are present Musculoskeletal: Spontaneously moving all extremities Skin: warm, dry, intact. Neuro: Alert oriented x 3 normal cranial nerves, strength decreased on the left upper and lower extremities. Psych: Normal affect - Assessment and Plan (1) COPD (chronic obstructive pulmonary disease) Current Visit: Yes Status: Chronic Assessment and Plan: History of COPD. Will place patient on bronchodilators. O2 supplementation. 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 Chemotherapy and radiation had been held in between due to patient's intolerance with persistent diarrhea and severe anemia. No further treatment planned at this time and patient has had persistent disease after concurrent chemoradiation. Poor prognosis overall. Patient wishes to be DNR/DNI. - per oncology notes -Not a surgical candidate at this moment. Not a candidate for further radiation per Dr. Bryan -On Keytruda (pembrolizumab) every 3 weeks next treatment scheduled for [facility] -Oncology did see the patient and appreciate recommendations-goals of care have been discussed awaiting palliative recommendations. Oncology's prognosis overall is poor -Has progression of disease evident by CT angiogram chest 11/19/2018 which does show increased and right middle lobe to 7 mm and also has a progression in the abdomen -He continues to require transfusions and had 2 units PRBCs yesterday for hemoglobin 6.4 today's up to 8.2 (4) Anemia of chronic disease Current Visit: Yes Status: Chronic Assessment and Plan: Due to neoplastic disease. Hemoglobin 7.3 today. No indication for blood transfusion. We will monitor blood counts closely. He did receive 2 units PRBCs on 11/04/18 On IV njectafer 750 mg every 4-6 weeks. Last dose 11/04/201811/20 Today patient's hemoglobin is 6.4-patient and would like to continue supportive blood transfusions. He will receive 2 units of PRBCs today continue to monitor hemoglobin closely 11/11 Hemoglobin was 6.4 yesterday he did receive 2 units of PRBCs and up to 8.2 today last transfusion was on 11/04/18 (5) Pneumonia Current Visit: Yes Status: Suspected Assessment and Plan: Bilateral lower lobe pneumonia. Per CT. Patient does have elevated WBC count. He has a history of adenocarcinoma of the GE junction. MRSA screen negative. Continue azithromycin for now. Requiring oxygen supplementation at this time 2 L nasal cannula-evaluated for home oxygen prior to discharge Continue bronchodilators Check sputum Seems to be stable (6) Hypoxia Current Visit: Yes Status: Acute Assessment and Plan: Patient was hypoxic on room air prior to arrival. We will continue O2 supplementation. Treat underlying conditions. Prior to discharge she will need evaluation for home oxygen. (7) Diabetes mellitus, type 2 Current Visit: Yes Status: Chronic Assessment and Plan: Accu-Cheks before meals at bedtime with sliding scale insulin-patient has poor oral intake monitor for hypoglycemia (8) Essential hypertension Current Visit: Yes Status: Chronic Assessment and Plan: Blood pressure low normal at this time. We will hold antihypertensives. (9) Goals of care, counseling/discussion Current Visit: Yes Status: Acute Assessment and Plan: Patient does have a history of gastric adenocarcinoma-disease seems to be progressing despite Pembrolizumab-he is not on chemotherapy or radiation due to intolerance he is not surgical candidate-overall prognosis is poor discussed this case with oncology as well as palliative care. Did speak with patient's and patient they are receptive to hospice and allowing patient to go home with nursing care. However Pallative reports that when she informed the supportive blood transfusions would likely stop and that the goal is to keep him at home and he would not likely return to the hospital. The express that she would like to discuss this with her daughters over the weekend we will revisit discussion on Thursday with palliative in business case analyst who has already reached out to the [place] concerning hospice services. Currently patient has a DNR comfort care arrest DNI 11/21 Today, I had a long discussion with the patient and his concerning prognosis. I discussed oncology note which stated that his prognosis is poor, that it appears that current CT scan of chest does show progression of disease. - Lung nodules have increased in the right middle lobe to 7 mm. He also has some progression in the abdomen, despite receiving Keytuda every 3 weeks Continue to bleed from gastric tumor. He is requiring frequent transfusions. Last transfusion 2 weeks ago Explained as disease progress, he will require more frequent transfusions and more hospital visits. He is not a surgical candidate. Patient verbalizes frequently that he wants to go home. We revisited conversation she had with hospice yesterday that blood transfusions would stop, as well as Keytruda treatments if they go home with hospice, patient states that " I doesn't want to come to hospital anymore I want to go home". Explained that if he wants to go home that we can set up hospice through the [place] , unfortunately it is Thursday and no social workers are available until tomorrow, but they have started working on his case Thursday. offered patient anxiety medication to help with cravings for cigarettes as well as nicotine patch. Encouraged patient to get up to the chair he is severely deconditioned and will be evaluated by PT and OT as well. Advised that he will be evaluated to see if he qualifies for home oxygen. and patient verbalized understanding and states that they will discuss Hospice (10) Malnutrition Current Visit: Yes Status: Acute Assessment and Plan: 1 patient has gastric adenocarcinoma poor oral intake might states the only thing as chocolate milk pre-albumin is 8.7 dietitian has been consulted for gibson pplement recommendations - appetite somewhat better with magic milkshakes - Time Spent with Patient Total time spent is greater than 50% in coordination of care (as documented) at patient's floor/unit and/or counseling patient: Internal Medicine: Result - Labs CBC & Chem 7: 11/21/18 04:00 11/20/18 02:32 Labs: Short CBC 11/21/18 Range/Units 04:00 WBC 7.6 (4.3-11.1) K/mcL Hgb 8.2 L D (12.9-16.9) g/dL Hct 26.6 L (37.5-50.1) % Plt Count 331 (140-400) K/mcL Neutrophils # 6.6 (1.6-8.9) K/mcL - ABG Interpretation ABG results: PT/INR, D-dimer PT 13.3 Seconds (9.4-12.1) H 11/18/18 17:40 Consult Discharge Plan - Plan Referrals: [facility] [Primary Care Provider] - (1) COPD (chronic obstructive pulmonary disease) Qualifiers: COPD type: unspecified COPD Qualified Code(s): J44.9 - Chronic obstructive pulmonary disease, unspecified (5) Pneumonia Qualifiers: Pneumonia type: due to Pneumococcus Laterality: bilateral Lung location: lower lobe of lung Qualified Code(s): J13 - Pneumonia due to Streptococcus pneumoniae (7) Diabetes mellitus, type 2 Qualifiers: Diabetes mellitus assistant terminal manager insulin use: without assistant terminal manager use Diabetes mellitus complication status: without complication Qualified Code(s): E11.9 - Type 2 diabetes mellitus without complications (10) Malnutrition Qualifiers: Malnutrition type: protein-calorie malnutrition Protein-calorie malnutrition severity: unspecified severity Qualified Code(s): E46 - Unspecified protein- calorie malnutrition
--- NOTE | 2018-11-21 12:44 | Event Note ---
Date of Encounter: 11/21/18 Time of Encounter: 12:30 Met with Jolie, in patient's room. According to staff, he was agitated earlier, and had medication, currently sleeping very soundly. Patient's states that while pt children not really ready for hospice, she realizes that that is likely what he needs. States he understands no further cancer treatment and likely no further transfusions. States he "just wants to come home, be with family,, and smoke". Patient's daughters will be coming up later today, and Rose states she will discuss with them. Told her if decision is made, and they decide who they want to utilize for hospice, to call me and provided my contact number. She states he has no immediate needs for DME, but will need bed/airmattress, overbed table, and oxygen eventually. D/W Hazel Amador NP
[2018-11-21 15:31] VITALS: BP 129/83
--- NOTE | 2018-11-21 17:18 | Event Note ---
Date of Encounter: 11/21/18 Time of Encounter: 17:14 I had a long conversation today with the patient's family daughters in the Patient concerning Current Treatment Plan and Prognosis. I Did Review Oncology's Note concerning Plan and Prognosis. I Also Reviewed Results from CT Angiogram of Chest. Discuss Hospice Options-and that the patient will not be receiving any more blood transfusions or he truly if he chooses hospice options- I did answer the patient's and family's questions concerning hospice and treatments. Concerned of patient's physical deconditioning and requiring more hospitalizations in the future particularly for blood transfusions. Patient and the family did discuss options and have decided that he would like to go home with current home health services. Advised that they change their mind a time that they can opt for hospice services. Currently patient does not appear to be in any distress and his respiratory status stable hemoglobin was 8 this morning she can be discharged home we will follow up with his primary care provider lab work can be monitored as an outpatient
--- NOTE | 2018-11-21 17:21 | Discharge Summary ---
- NOTES TO OUTPATIENT PROVIDER Notes to Outpatient Provider: Patient did require 2 units PRBCs due to hemoglobin of 6. He did have a pneumonia on Zithromax-. CT angiogram of chest does show increased lung nodules in the right middle lobe up to 7 mm some progression in his abdomen. He continues to bleed from gastric tumor. He can f ollow up with oncology as outpatient. Monitor hemoglobin and hematocrit closely may require more frequent transfusions as it appears the tumor is progressing. Orders not resulted at time of discharge: Pending orders 11/18/18 16:36 Drug Screen, Urine [UCHEM] Stat Urinalysis Reflex Cult & Micro [URIN] Stat 11/18/18 22:58 Culture,Blood [BC] Stat 11/19/18 08:55 Sputum Culture [Culture,Sputum with Gram Stain] [RM] Routine 11/22/18 04:00 CBC [Complete Blood Count] [HEME] AM 0400 Date of Encounter: 11/21/18 Time of Encounter: 17:19 - Discharge Diagnosis (1) COPD (chronic obstructive pulmonary disease) Priority: Secondary Status: Chronic Qualifiers: COPD type: unspecified COPD Qualified Code(s): J44.9 - Chronic obstructive pulmonary disease, unspecified (2) Gastric adenocarcinoma Priority: Secondary Status: Chronic (3) Anemia of chronic disease Priority: Secondary Status: Chronic (4) Pneumonia Priority: Primary Status: Suspected Qualifiers: Pneumonia type: due to Pneumococcus Laterality: bilateral Lung location: lower lobe of lung Qualified Code(s): J13 - Pneumonia due to Streptococcus pneumoniae (5) Hypoxia Priority: Secondary Status: Acute (6) Diabetes mellitus, type 2 Priority: Secondary Status: Chronic Qualifiers: Diabetes mellitus fdc insulin use: without fdc use Diabetes mellitus complication status: without complication Qualified Code(s): E11.9 - Type 2 diabetes mellitus without complications (7) Essential hypertension Priority: Secondary Status: Chronic (8) Goals of care, counseling/discussion Priority: Secondary Status: Acute (9) Malnutrition Priority: Secondary Status: Acute Qualifiers: Malnutrition type: protein-calorie malnutrition Protein-calorie malnutrition severity: unspecified severity Qualified Code(s): E46 - Unspecified protein-calorie malnutrition Hospital course: Mr. Abbott is a 73 year old male past medical history of gastric adenocarcino ma COPD diabetes hypertension hyperlipidemia chronic anemia evaluated by home health nurse was noted to be hypoxic extremity increasing cough and shortness of breath or past week prior to presentation as well as weakness room air sats were 80 5 to presentation. He is receiving last blood transfusion on 11/04 2018. Chest x-ray does show right lower [place] the CTA of chest bilateral lower lobe infiltrates right greater than left suspicious for infectious inflammatory pneumonitis. Increased size of right middle lobe and lingular nodules concerning for metastatic disease. He was admitted and given IV antibiotics as well as bronchodilators requiring oxygen support and was weaned off oxygen to room air. His respiratory state did not improve. During stays hemoglobin was 6 and required 2 units of PRBCs oncology did see the patient and had discussion with him concerning prognosis lung nodules have increased in right middle lobe [place] millimeters some progression in the abdomen continues to bleed from gastric tumor despite receiving K Trude. Palliative was consulted as as well patient's and the patient had originally agreed to palliative services social staff worker were consulted to [place]. However family and patient decided that he would prefer to go home with home health services and if worsening he will transition to hospice. He would like to continue with receiving blood transfusions and current treatment and keep Trude. Currently patient is hemodynamically stable this time. I did hold his lisinopril due to hypotension which we will need to monitor his blood pressure home. As well as we held his diabetic medication due to poor oral intake. Patient is physically deconditioned family is aware and so is the patient refusing physical therapy evaluation would like to take care of patient at home with home health services. I did speak to golf professional social service coordinator Hemalatha he states that patient can continue home health services and if they want hospice would prefer them stay would be easier for them to [place] but can be completed as an outpatient later on if they desire. Currently patient is hemodynamically stable he is on room air not requiring any oxygen supplementation advised to follow-up with primary care provider is ready for discharge. - Time Spent with Patient Total time spent providing and/or coordinating discharge services: - Discharge Medications Prescriptions: New Doxycycline 100 mg PO BID 3 Days #6 capsule Ipratropium/Albuterol Neb [Duoneb] 3 ml IH Q6HR PRN #30 vial.neb PRN Reason: Shortness Of Breath/Wheezing Continued Albuterol Sulfate [Albuterol Inhaler] 2 puff IH Q4HR PRN PRN Reason: Shortness Of Breath Ascorbic Acid [Vitamin C] 250 mg PO BID Cholecalciferol (D-3) [Vitamin D] 2,000 unit PO DAILY Colestipol HCl [Colestid] 2 gm PO DAILY Omeprazole [PriLOSEC] 20 mg PO BIDAC Simvastatin [Zocor] 40 mg PO HS Tiotropium [place] [Spiriva Respimat] 2 puff IH DAILY Zolpidem [Ambien] 5 mg PO HS Aspirin [Lo-Dose Aspirin EC] 81 mg PO DAILY Citalopram [CeleXA] 20 mg PO DAILY #30 tablet Ferric Carboxymaltose [Injectafer] 750 mg IV Q30D Cyanocobalamin (B-12) [Vitamin B12] 1,000 mcg IM Q30D Pembrolizumab [Keytruda] 1 each IV Q30D Levothyroxine Sodium [Synthroid] 200 mcg PO DAILY #30 tablet Nicotine Patch [Nicoderm] 21 mg TD DAILY #30 patch.td24 Tamsulosin [Flomax] 0.4 mg PO DAILY #30 cap.er.24h Discontinued glipiZIDE [Glipizide] 10 mg PO BID Lisinopril [Zestril] 20 mg PO DAILY metFORMIN [Glucophage] 850 mg PO TID Home Medications: Albuterol Sulfate [Albuterol Inhaler] 2 puff IH Q4HR PRN 12/19/17 [History] Ascorbic Acid [Vitamin C] 250 mg PO BID 12/19/17 [History] Cholecalciferol (D-3) [Vitamin D] 2,000 unit PO DAILY 12/19/17 [History] Colestipol HCl [Colestid] 2 gm PO DAILY 12/19/17 [History] Omeprazole [PriLOSEC] 20 mg PO BIDAC 12/19/17 [History] Simvastatin [Zocor] 40 mg PO HS 12/19/17 [History] Tiotropium [place] [Spiriva Respimat] 2 puff IH DAILY 12/19/17 [History] Zolpidem [Ambien] 5 mg PO HS 12/19/17 [History] Aspirin [Lo-Dose Aspirin EC] 81 mg PO DAILY 01/01/18 [History] Citalopram [CeleXA] 20 mg PO DAILY #30 tablet 03/04/18 [Rx] Cyanocobalamin (B-12) [Vitamin B12] 1,000 mcg IM Q30D 04/22/18 [History] Ferric Carboxymaltose [Injectafer] 750 mg IV Q30D 04/22/18 [History] Pembrolizumab [Keytruda] 1 each IV Q30D 04/22/18 [History] Levothyroxine Sodium [Synthroid] 200 mcg PO DAILY #30 tablet 10/18/18 [Rx] Nicotine Patch [Nicoderm] 21 mg TD DAILY #30 patch.td24 11/04/18 [Rx] Tamsulosin [Flomax] 0.4 mg PO DAILY #30 cap.er.24h 11/05/18 [Rx] Doxycycline 100 mg PO BID 3 Days #6 capsule 11/21/18 [Rx] Ipratropium/Albuterol Neb [Duoneb] 3 ml IH Q6HR PRN #30 vial.neb 11/21/18 [Rx] Allergies/Adverse Reactions: Allergy/AdvReac Type Severity Reaction Status Date / Time No Known Drug Allergies Allergy See Verified 11/19/18 11:59 Comments Date of admission: 11/19/18 11:31 [facility] care physician: [facility] Consults: 11/19/18 08:14 Consult to Nurse Navigator [CONS] Routine Comment: PNEUMONIA 11/19/18 13:53 Consult to Occupational Therapy [CONS] Routine Comment: Evaluate, develop and implement POC Reason for Consult: WEAKNESS Does patient have active BEDREST order?: No Is patient medically & hemodynamically stable?: Yes Consult to Physical Therapy [CONS] Routine Comment: Evaluate, develop and implement POC Reason for Consult: WEAKNESS Does patient have active BEDREST order?: No Is patient medically & hemodynamically stable?: Yes 11/19/18 14:51 Consult to Palliative Care [CONS] Routine Comment: Consulting Provider: Palliative Care [place] Reason for Consult: Gastric adenocarcinoma poor prognosis- physical decline Time Notified: 14:53 Call Completed: Yes consult to analysis lead [Consult to Nutrition] [CONS] Routine Comment: Consulting Provider: NUTRITION Reason for Dietary Consult: PO Supplementation 11/19/18 17:32 Consult to [facility] [CONS] Routine Reason for SW Consult: Hospice discussion, pateint family want information on hospice at home Discharging clinician: Hazel Amador Anticipated date of discharge: 11/21/18 - Constitutional Vitals: Temp Pulse Resp BP Pulse Ox 97.2 F L 73 18 129/83 92 11/21/18 15:30 11/21/18 15:30 11/21/18 15:30 11/21/18 15:30 11/21/18 15:30 Exam: General: Patient is alert, oriented x 3, cachectic Head: atraumatic, normocephalic, ENT: Mucous membranes pink and moist Eye: normal appearance, PERRL, no scleral icterus, no conjunctival injection Neck: normal inspection, trachea midline, full ROM, no carotid bruits Chest: normal inspection, symmetric chest rise Respiratory: breath sounds clear bilaterally with prolonged expiratory phase and end expiratory wheezing Cardiovascular: Regular rate and rhythm. s1 and s2 normal No clicks, rubs, gallops, or murmurs. No pedal edema Abdomen: Abdomen is soft, nontender. Bowel sounds are present Musculoskeletal: Spontaneously moving all extremities Skin: warm, dry, intact. Neuro: Alert oriented x 3 normal cranial nerves, strength decreased on the left upper and lower extremities. Psych: Normal affect - Patient Status Disposition: Home Health Service Condition: Fair Functional capacity at discharge: bed bound Overall status at discharge: patient is back to baseline - Discharge Instructions Instructions: Doxycycline (By mouth), Ipratropium/Albuterol (By breathing), Chronic Obstructive Pulmonary Disease (DC), Anemia (GEN) [facility]: [facility] [Primary Care Provider[facility] - (please call and schedule a follow up appointment with your primary care provider to be seen in the next 5 to 7 days. ) - Diet and Activity Activity: increase activity as tolerated Diet: advance to your usual diet
--- NOTE | 2018-11-21 18:06 | Physician Discharge Referral ---
Home Health/Hosp Referral Info Transfer to: Home Health Attending Provider: alec Oliva Provider in Charge Post Discharge: PCP - Diagnosis (1) COPD (chronic obstructive pulmonary disease) Priority: Primary Status: Chronic (2) Gastric adenocarcinoma Priority: Secondary Status: Chronic (3) Anemia of chronic disease Priority: Secondary Status: Chronic (4) Pneumonia Priority: Primary Status: Suspected (5) Hypoxia Priority: Secondary Status: Acute (6) Diabetes mellitus, type 2 Priority: Secondary Status: Chronic (7) Essential hypertension Priority: Secondary Status: Chronic (8) Goals of care, counseling/discussion Priority: Secondary Status: Acute (9) Malnutrition Priority: Secondary Status: Acute - Respiratory Orders Smoking Cessation: Smoking cessation has been advised. For more information, call the [place] Tobacco Quit Line at 5-081-CGPK-NOW. - Activity Activity Orders: Up ad luis fernando - Services Needed Following services are medically necessary services: Nursing, Home Health Aide Other Treatments: Check CBC as well as chemistry in 2 days - Transfer Medications Prescriptions: Doxycycline 100 mg PO BID 3 Days #6 capsule Ipratropium/Albuterol Neb [Duoneb] 3 ml IH Q6HR PRN #30 vial.neb PRN Reason: Shortness Of Breath/Wheezing Home Medications: Albuterol Sulfate [Albuterol Inhaler] 2 puff IH Q4HR PRN 12/19/17 [History] Ascorbic Acid [Vitamin C] 250 mg PO BID 12/19/17 [History] Cholecalciferol (D-3) [Vitamin D] 2,000 unit PO DAILY 12/19/17 [History] Colestipol HCl [Colestid] 2 gm PO DAILY 12/19/17 [History] Omeprazole [PriLOSEC] 20 mg PO BIDAC 12/19/17 [History] Simvastatin [Zocor] 40 mg PO HS 12/19/17 [History] Tiotropium [place] [Spiriva Respimat] 2 puff IH DAILY 12/19/17 [History] Zolpidem [Ambien] 5 mg PO HS 12/19/17 [History] Aspirin [Lo-Dose Aspirin EC] 81 mg PO DAILY 01/01/18 [History] Citalopram [CeleXA] 20 mg PO DAILY #30 tablet 03/04/18 [Rx] Cyanocobalamin (B-12) [Vitamin B12] 1,000 mcg IM Q30D 04/22/18 [History] Ferric Carboxymaltose [Injectafer] 750 mg IV Q30D 04/22/18 [History] Pembrolizumab [Keytruda] 1 each IV Q30D 04/22/18 [History] Levothyroxine Sodium [Synthroid] 200 mcg PO DAILY #30 tablet 10/18/18 [Rx] Nicotine Patch [Nicoderm] 21 mg TD DAILY #30 patch.td24 11/04/18 [Rx] Tamsulosin [Flomax] 0.4 mg PO DAILY #30 cap.er.24h 11/05/18 [Rx] Doxycycline 100 mg PO BID 3 Days #6 capsule 11/21/18 [Rx] Ipratropium/Albuterol Neb [Duoneb] 3 ml IH Q6HR PRN #30 vial.neb 11/21/18 [Rx] Allergies/Adverse Reactions: Allergy/AdvReac Type Severity Reaction Status Date / Time No Known Drug Allergies Allergy See Verified 11/19/18 11:59 Comments Certification: Further, I certify that my clinical findings support that this patient is homebound (i.e. absences from home require considerable and taxing effort and are for medical reasons or confucianism services or infrequently or short duration when for other reasons) because: Homebound Reason: Severity of cardiac or pulmonary status limits activity tolerance Attestation: My signature below is to certify that this patient is under my care and that I, or nurse practitioner, or a physician's pharmacy sales assistant working with me, has a [id number] encounter with this patient.
[2018-11-30] MEDS ORDERED: Cyanocobalamin (B-12) 1,000 MCG/ML VIAL IM SCH (09:00)
== END 2018-11-21 18:09 | disposition home health service (06) | DRG 194 ==
LOC: EMEROOARM 16:32 → 3BNU 16:32
PROVIDERS: ADMIT Internal Medicine; ATTEND Internal Medicine